=== PATIENT | female | born 1930 | race Caucasian/White ===

== ENCOUNTER 2016-06-13 10:14 | Inpatient (IN) | payer OTHER ==
[~2016-06-13] VITALS: Ht 165.1 cm; Wt 62.8 kg
[~2016-06-13 10:14] MED LIST: ALDACTONE25 MG PO; AMLODIPINE BESYL5 MG PO; ASPIRIN ADULT L81 MG PO; CEPHALEXIN500 MG PO; COREG25 MG PO; COUMADIN5 MG PO; DIGOXIN0.125 MG PO; EFFER-K20 MEQ PO; FLONASE AL50 MCG/ACT; FOLIC ACID1 MG PO; HYDROXYCHLOROQ200 MG PO; IPRATROPIUM BR0.02 %; IRON325 MG PO; LASIX40 MG PO; LISINOPRIL5 MG PO; MAG-OXIDE400 MG PO; METHOTREXATE2.5 MG PO; OXAYDO5 MG PO; PLAQUENIL200 M1 PO; POTASSIUM CHLO10 ME2 PO; PRILOSEC20 MG PO; TYLENOL325 MG PO; ZOCOR10 MG PO
--- NOTE | 2016-06-13 11:30 | DIAGNOSTIC IMAGING REPORT ---
PROCEDURE: CT HEAD WITHOUT CONTRAST INDICATION: TRAUMA/INJURY TECHNIQUE: Axial CT images were acquired through the head. Coronal and sagittal reformations were created. COMPARISON: Head CT dated 05/04/2013 FINDINGS: Right occipital craniotomy with underlying right cerebellar encephalomalacia (2.5 x 4.0 cm). Left frontoparietal scalp edema/hematoma but no underlying fracture or intracranial hemorrhage. Moderate cortical atrophy. Right ventricular system is unremarkable. Mild white matter chronic ischemic changes. No acute CVA, mass or midline shift. Calcification of the vertebral and carotid arteries. The mastoids and visualized sinuses are clear IMPRESSION: 1. Left frontal scalp edema/hematoma but no skull fracture or intracranial hemorrhage 2. Moderate cortical atrophy with mild white matter chronic ischemic changes 3. Right occipital craniotomy and underlying encephalomalacia Findings discussed with Dr. Cheng at 11:27 a.m., [place] standard time All CT scans at this facility use dose modulation, iterative reconstruction, and/or weight-based dosing when appropriate to reduce radiation dose to as low as reasonably achievable.
--- NOTE | 2016-06-13 11:33 | DIAGNOSTIC IMAGING REPORT ---
PROCEDURE: CT CERVICAL SPINE W/O CONTRAST INDICATION: TRAUMA/INJURY TECHNIQUE: Noncontrast axial images with sagittal and coronal reformations. COMPARISON: None. FINDINGS: There is spondylosis from C3-C7 with osteophytic ridges and foraminal impingement bilaterally. No evidence of an acute process or fracture. Alignment is normal. IMPRESSION: 1. Negative CT cervical spine. No evidence of an acute process or fracture. Spondylosis C3-C7
--- NOTE | 2016-06-13 11:36 | DIAGNOSTIC IMAGING REPORT ---
PROCEDURE: XR CHEST 1 VIEW INDICATION: SYNCOPE TECHNIQUE: Portable AP view 11:13 a.m. COMPARISON: Chest 09/23/2015 FINDINGS: Cardiomegaly and pulmonary edema. Mediastinum and thorax are normal. IMPRESSION: 1. Congestive heart failure 2. Results were called to Skylar at 11:35 a.m.
--- NOTE | 2016-06-13 14:07 | ED NURSING NOTES ---
Clinical Report - Nurses [facility] [address] [place] [address] 06/13/2016 10:14 [id number] Triage time 10:18 Jun 13 2016. Acuity: LEVEL 3. Chief Complaint: ALTERED MENTAL STATUS and (GLF). SEPSIS SCREEN: Sepsis Screen. Infection suspected/documented. Acute mental status change and glucose greater than 120 (with no history of diabetes). Physician notified. ALYSSA COMA SCORE: Alyssa Coma Scale: 9- eyes open to voice (3); best verbal response- incoherent speech (2); best motor response- withdrawal (4). --10:33 Amy Martin R.N. 10:20 06/13/16. BP: 177/79. HR: 81. RR: 18. O2 saturation: 94%. Temp: 97.1 F. --10:33 Amy Martin R.N. Weight: 77.1 kg estimated. Height/Length: 67 inches Estimated. BMI: 26.6. --10:32 Amy Martin R.N. Medications Ipratropium [place] Inhalation 2 unit doses, 4x a day as needed. --10:21 Amy Martin R.N. Ferrous Sulfate Oral (Tablet 325 (65 Fe) mg) 1 tablet, 2x a day. --10:22 Amy Martin R.N. Allergies No Known Drug Allergy. --10:22 Amy Martin R.N. History Arrived by EMS. PAST MEDICAL HX: Unknown. Immunizations: status is unknown. FALL RISK ASSESSMENT: Fall risk assessment completed. Risk factors identified include patient age greater than 65 years and history of fall. Fall interventions initiated. Patient placed on stretcher. Side rails up x2. Brakes on Bed in low position. Call light in reach of patient. NUTRITIONAL RISK ASSESSMENT: The nutritional assessment was deferred. FUNCTIONAL ASSESSMENT: Functional assessment performed: independent with the activities of daily living. LEARNING NEEDS ASSESSMENT: The learning needs assessment was deferred. SKIN INTEGRITY ASSESSMENT: Skin integrity risk assessment completed. No skin integrity risk identified. --10:33 Amy Martin R.N. PROBLEMS: Hypothyroidism. Abnormal Test. Anemia. GI Bleeding. Pedal Edema. Atrial Fibrillation. Hip Fracture. Congestive Heart Failure. Dyspnea. Fall. Contusion. Tetanus Status. Hypertension. Arthritis. --10:23 Amy Martin R.N. ADDITIONAL SURGERIES: Back Surgery. Knee Surgery. --10:23 Amy Martin R.N. Interventions ID band on patient. To room. --10:33 Amy Martin R.N. PHYSICAL ASSESSMENT To room via stretcher. GENERAL / NEURO / PSYCH: The patient is disoriented to place, time and situation. Patient's speech is incoherent. RESPIRATORY: Respirations not labored. CVS: Capillary refill is greater than 2 seconds. GI / : Abdomen soft. SKIN: Skin is warm and dry. --10:20 Amy Martin R.N. NURSING PROGRESS NOTES auto polisher, pulse oximeter and NIBP monitor placed on patient; staff research scientist- Lead II; monitor alarms on. Patient gowned. Head of bed elevated. Patient identifiers checked. Call light placed in reach. Side rails up x 2. Bed placed in lowest position. Brakes of bed on. --10:34 Amy Martin R.N. 5 fr in/out catheterization. Reason for indwelling catheter: patient's decreased level of consciousness. During procedure hand hygiene observed and sterile equipment and aseptic technique used. Return of yellow-colored clear urine. She tolerated procedure well. --10:35 Amy Martin R.N. Patient ID band checked for patient name and birthdate: patient confirmed. Blood samples drawn from the left antecubital space IV site with syringe by nurse ; labeled in presence of the patient and sent to lab: gerard gudino. Initial blood discarded. Line flushed with 10 mL normal saline post blood draw. --10:47 Amy Martin R.N. Patient ID band checked for patient name and birthdate. Blood samples drawn from the left hand with Vacutainer 21g by nurse ; labeled in presence of the patient and sent to lab: blue and singh top. --11:03 Amy Martin R.N. EKG time: (1100). EKG was ordered, performed by a tech and shown to the ED physician. --11:04 Amy Martin R.N. Patient transported to radiology by stretcher with tech. (1100). --11:04 Amy Martin R.N. 10:55. ( Pt transported to [facility] and back by [employer].). --11:11 Lesley Linares ( RT at bedside for ABG Blood draw). --11:11 Lesley Linares 10:30 06/13/2016 Site #1 started via IV in the left antecubital space with an 20g angiocath (IV initiated by jan CRISTINA). --11:40 Joellen Gibson R.N. 11:40 06/13/2016 Started bag #1 1000 mL IV Fluids IV NS (Saline); at 999 mL/hr over 1 hour(s) via site #1 via IV pump. Allergies verified and confirmed 5 rights. IV patency established. IV site checked: no pain, redness, or swelling. IV flushed thoroughly pre- and post-medication administration. --11:40 Joellen Gibson R.N. 12:07 06/13/16. BP: 166/85. HR: 92. RR: 19. O2 saturation: 100% on nasal cannula at 2 liters/minute. --12:07 Amy Martin R.N. 13:06 06/13/16. BP: 164/74. HR: 92. RR: 20. O2 saturation: 99%. --13:07 Amy Martin R.N. 15:16 06/13/2016 Lasix IVP 60 mg given over 5 minute(s) via site #1. Confirmed 5 rights. IV patency established. IV site checked: no pain, redness, or swelling. IV flushed thoroughly pre- and post-medication administration. --15:31 Amy Martin R.N. 15:17 06/13/2016 Started 2 gm of Ceftriaxone IVPB in bag #1 50 mL; at 150 mg/hr over 20 minute(s) via site #1 --15:32 Amy Martin R.N. 14:50 06/13/16. BP: 162/81. HR: 111. RR: 19. O2 saturation: 97% on nasal cannula at 2 liters/minute. --15:33 Amy Martin R.N. GENERAL / NEURO / PSYCH: Decreased awareness opens eyes to voice; drowsy. Two patient identifiers checked. Call light placed in reach. Bed placed in lowest position. Brakes of bed on. --15:33 Amy Martin R.N. 15:45 06/13/2016 Aspirin PA Supp/(PA) 300 mg given. --15:45 Amy Martin R.N. 16:05 06/13/16. The patient is resting quietly. Overall patient status is the same- she states feels the same. RESPIRATORY: No respiratory distress. SKIN: Skin is warm and dry. --16:05 Seema Molina R.N. 16:05 06/13/16. BP: 159/74. HR: 100. RR: 21. O2 saturation: 96% on room air. Pain level now: cannot qualify. --16:05 Seema Molina R.N. Care transferred and report given (Danni HODGSON). --16:48 Amy Martin R.N. NIH STROKE SCALE: 14:52 06/13/16. Score 16. Level of Consciousness: drowsy (1). LOC Questions: neither (2). LOC Commands: neither (2). Best gaze: normal (0). Motor arm: no drift left arm (0) and no effort against gravity right arm (3). Motor leg: no drift left leg (0) and no effort against gravity right leg (3). Aphasia: mute (3). Dysarthria: severe (2). Extinction and inattention: none (0). --14:56 Amy Martin R.N. DISPOSITION / DISCHARGE Departure time: 17:10 Jun 13 2016. Condition at departure: unchanged. Admitted to the Critical Care Unit. Transported via stretcher by [facility]. Report was given to a nurse via a phone call. Report included patient's care, treatment, medications, reviewed medication reconcilliation, and condition (including any recent changes or anticipated changes). All questions were answered. Care was transferred. Patient's personal items include, blalnket and gown; items were placed in belongings bag, given to the patient and transported with the patient. --17:16 Amy Martin R.N. Locked/Released at 06/17/2016 11:18 by Amy Martin R.N.
--- NOTE | 2016-06-13 14:07 | ED ORDER SUMMARY ---
..... Patient: SUNIL TRINH OrderSheet [facility] VisitID: [id number] [place] [address] 86y, F Registration Date/Time: 06/13/2016 ORDER SHEET Weight: 77.1 kg (estimated) Allergies: No Known Drug Allergy GENERAL ORDERS: Chest 1V Urgent (10:06/13/2016 Tatyana SAMPSON) (Ack 11:01 Jamshid) (11:16 Georgia R.N.) CT Head wo Cont Urgent (10:06/13/2016 Tatyana SAMPSON) (Ack 11:01 Jamshid) (11:17 Georgia R.N.) Solutions Consultant (Continuous) (:06/13/2016 Tatyana SAMPSON) (11:16 Georgia R.N.) CT Cervical Spine wo Cont Urgent (10:06/13/2016 Tatyana SAMPSON) (Ack 11:01 Jamshid) (11:17 Georgia R.N.) UA-Culture if indicated Urgent (10:06/13/2016 Tatyana SAMPSON) (Ack 11:01 Jamshid) (11:16 Georgia R.N.) Cardiac Panel Stat (:06/13/2016 Tatyana SAMPSON) (Ack 11:01 Jamshid) (11:40 KKnebel R.N.) BNP Urgent (10:06/13/2016 Tatyana SAMPSON) (Ack 11:01 Jamshid) (11:40 KKnebel R.N.) D-Dimer Urgent (10:06/13/2016 Tatyana SAMPSON) (Ack 11:01 Jamshid) (11:40 KKnebel R.N.) Lactate, Serum Urgent (:06/13/2016 Tatyana SAMPSON) (Ack 11:01 Jamshid) (11:40 KKnebel R.N.) Oxygen (2 L/min) (NC) (:06/13/2016 Tatyana SAMPSON) (11:41 KKnebel R.N.) Pulse oximeter (:06/13/2016 Tatyana SAMPSON) (11:16 Georgia R.N.) EKG - ER Stat (:06/13/2016 Tatyana SAMPSON) (11:02 Jamshid) ABG (G) Urgent (10:49 06/13/2016 Tatyana SAMPSON) (Ack 11:01 Jamshid) (11:42 Aleksander R.N.) Elizabeth Catheter (16:11 06/13/2016 Tatyana SAMPSON) (Ack 16:26 Maryann R.N.) (16:39 Aleksander R.N.) MEDICATION ORDERS: Aspirin GA 300 mg (NOW) (15:01 06/13/2016 Tatyana SAMPSON) (15:45 Aleksander R.N.) IV FLUIDS: IV NS : initial bolus 1000 mL (1000 mL/hr), then none - (NOW) (10:29 06/13/2016 Tatyana SAMPSON) (11:40 Jaycob R.N.) Lasix IV 60 mg (NOW) (14:02 06/13/2016 Tatyana SAMPSON) (15:31 Aleksander R.N.) Ceftriaxone IV 2 gm/50mL (NOW) (14:31 06/13/2016 Tatyana SAMPSON) (15:32 Aleksander R.N.) ORDER SHEET NOTES: [Electronically signed by Marisela Cheng MD (07:21 06/17/2016)] [Electronically signed by Amy Martin R.N. (11:18 06/17/2016)] [Electronically locked/signed by Amy Martin R.N. (11:18 06/17/2016)]
--- NOTE | 2016-06-13 14:07 | ED CLINICAL REPORT ---
Clinical Report - Physicians/Mid Levels [facility] [address] [place] [address] 06/13/2016 10:14 Patient: SUNLI TRINH Time Seen: 10:25. Arrived- By ambulance. Historian- EMS personnel. Unobtainable due to patient's altered mental status. HISTORY OF PRESENT ILLNESS Chief Complaint: DECREASED MENTAL STATUS. Pt also fell. The patient is described as having decreased responsiveness. This started today, is still present and patient was last known well (Staff at [facility] states that pt was her normal self yesterday evening. They heard a "thump" in her room this morning, and when they checked on her 30 min later, she was unresponsive on the floor. Pt has remained unresponsive for the medics, though she has been making occasional vocalizations and moving x 4 extremities.). The patient was found unresponsive. [facility] resident; (assisted living, has her own apartment). History of chronic dementia. No alcohol recently or recent drug use. Dextro stick was not low prior to arrival. The patient has had a recent fall. Usually has normal mobility. She is usually alert, but disoriented to time. Similar symptoms previously: None. Recent medical care: Not recently seen/assessed. REVIEW OF SYSTEMS Unobtainable. PAST HISTORY ( POLST form with DNR has accompanied pt.). Problems: Hypothyroidism. Anemia. GI Bleeding. Pedal Edema. Atrial Fibrillation. Hip Fracture. Congestive Heart Failure. Dyspnea. Tetanus Status. Hypertension. Arthritis. Additional Surgeries: Back Surgery. Knee Surgery. Medications: Ferrous Sulfate Oral (Tablet 325 (65 Fe) mg) 1 tablet, 2x a day. Ipratropium [place] Inhalation 2 unit doses, 4x a day as needed. Allergies: No Known Drug Allergy. SOCIAL HISTORY Never smoker. No alcohol use or drug use. ADDITIONAL NOTES The nursing notes have been reviewed. PHYSICAL EXAM Vital Signs: 06/13/2016 10:20 BP: 177/79. HR: 81. RR: 18. O2 saturation: 94%. Temp: 97.1 F. Have been reviewed. Appearance: No acute distress. She is obtunded. (PT groans in response to voice, and vaguely pulls at her eyes when addressed.). Head: Head atraumatic. Eyes: Pupils equal, round and reactive to light. ENT: Normal ENT inspection. Airway intact. Moist mucous membranes. Neck: Normal inspection. Neck supple. CVS: Normal heart rate and rhythm. Heart sounds normal. Pulses normal. Respiratory: No respiratory distress. Breath sounds normal. Abdomen: Soft and nontender. Back: Normal inspection. Skin: Skin warm and dry. Normal skin color. No rash. Normal skin turgor. Extremities: Extremities exhibit normal ROM. No lower extremity edema. Neuro: Alertness is decreased(does not open eyes to pain and stuporous). (Pt is moving all 4 extremities.). LABS, X-RAYS, AND EKG EKG: EKG time: (1058). No acute ischemia. Rate: 77. Atrial fibrillation. Abnormal P waves. Normal QRS complex. Normal axis. Normal ST and T waves, QT and QTc. Prior EKG unavailable. The study has been interpreted contemporaneously by me. The study has been independently viewed by me. The EKG appears to be a good tracing. I agree with and confirm the computer reading of the EKG. Rhythm Strip #1: Time: (1016). Rate= 94. Atrial fibrillation. Narrow QRS complexes. Irregularly irregular rhythm. No ectopy. Conduction normal. Normal ST segments and T waves. The study was interpreted by me. Chest X-ray: Normal heart size. Mediastinum normal. Great vessels normal. Soft tissues normal. No infiltrate. No fracture. No bony lesion present. Views: AP (portable). Technique: good. The X-rays were independently viewed by me, interpreted by the radiologist and contemporaneously by me and discussed with the radiologist. Prior films were not available for comparison. CT C-Spine: No acute findings. Degenerative joint disease. Soft tissue normal. No fracture or subluxation. C-Spine CT performed without contrast. The study was independently viewed by me, interpreted by the radiologist and contemporaneously by me and discussed with the radiologist. Prior studies were not available for comparison. CT Head: No acute changes. No bony abnormalities, no hemorrhage, no intracranial mass, no midline shift and no hydrocephalus. There is moderate atrophy is present. Head CT performed without contrast. The study was independently viewed by me, interpreted contemporaneously by me and discussed with the radiologist. Prior studies were not available for comparison. Laboratory Tests: UA-Culture if indicated: (JOSH: 06/13/2016 10:35) ( MsgRcvd 06/13/2016 11:42) Final results Test Result Flag Units (Reference) URINE COLOR YELLOW URINE APPEARANCE CLEAR URINE GLUCOSE NEGATIVE (NEGATIVE) URINE BILIRUBIN NEGATIVE (NEGATIVE) URINE KETONE NEGATIVE (NEGATIVE) URINE SPECIFIC GRAVITY 1.010 (1.010-1.030) URINE PH 5.5 (5.0-8.0) URINE PROTEIN NEGATIVE (NEGATIVE) URINE UROBILINOGEN 0.2 EU/dL (0.2-1.0) URINE NITRITE NEGATIVE (NEGATIVE) URINE BLOOD NEGATIVE (NEGATIVE) URINE LEUK ESTERASE POSITIVE (NEGATIVE) URINE RBC NONE SEEN rbc/hpf (0-1) URINE WBC 1-3 wbc/hpf (0-1) URINE EPITHELIAL CELLS 0-1 EPI/hpf (0-5) URINE BACTERIA TRACE (<1+) (NONE SEEN) URINE COMMENT CULTURE INDICATED URINE CULTURES ARE SET-UP BASED ON THE FOLLOWING CRITERIA:POSITIVE NITRITEPOSITIVE LEUKOCYTE ESTERASEGREATER THAN 10 WHITE BLOOD CELLSMODERATE (2+) OR GREATER BACTERIA CBC w Diff: (JOSH: 06/13/2016 10:40) ( MsgRcvd 06/13/2016 10:53) Final results Test Result Flag Units (Reference) WHITE BLOOD COUNT 3.9 L K/uL (4.5-11.5) RED BLOOD COUNT 2.12 L M/uL (4.00-5.20) HEMOGLOBIN 7.5 L gm/dL (12.0-16.0) HEMATOCRIT 23.2 L % (36.0-46.0) MEAN CELL VOLUME 110 H fL (80-100) MEAN CORPUSCULAR HGB 36 H pg (26-34) MEAN CORPUSCULAR HGB CONC 32 g/dL (31-37) RED CELL DISTRIBUTION WIDTH 15.9 H % (11.6-14.8) PLATELET COUNT 150 K/uL (150-400) NEUTROPHIL % 62.7 % (50-75) LYMPH % 16.9 L % (25-40) MONO % 13.8 % (3-14) EOSINOPHIL % 6.1 H % (0-4) BASOPHIL % 0.5 % (0-2) [id number]: (JOSH: 06/13/2016 11:00) ( [facility] 06/13/2016 11:37) Final results Test Result Flag Units (Reference) D-DIMER QUANTITATIVE 1.33 H ug/mLFEU (0.27-0.52) The primary value of this quantitative assay relates toits negative predictive value (i.e. exclusion) of pulmonaryembolism/deep vein thrombosis/DIC.Elevated levels of d-dimer may also occur with:, age, cancer, inflammation, liver disease,post-op, infection, hematoma, coronary disease, peripheralarteriopathy, bleeding disorders and thrombolytic treatment.Results should be correlated with other clinical andradiological data.Testing Methodology: Latex Immunoassay BNP: (JOSH: 06/13/2016 10:40) ( [facility] 06/13/2016 11:20) Final results Test Result Flag Units (Reference) B-TYPE NATRIURETIC PEPTIDE 193 H pg/ml (5-100) Lactate, Serum: (JOSH: 06/13/2016 11:00) ( [facility] 06/13/2016 11:29) Final results Test Result Flag Units (Reference) LACTIC ACID 1.3 mmol/L (0.4-2.0) CHEM 13 PANEL: (JOSH: 06/13/2016 10:40) ( [facility] 06/13/2016 11:10) Final results Test Result Flag Units (Reference) GLUCOSE 99 mg/dL (70-110) BUN 45 H mg/dL (7-18) CREATININE 1.5 H mg/dL (0.6-1.3) Estimated GFR 34.83 mL/min Estimated GFR- 42.22 mL/min Note: Persistent reduction over 3 months in eGFR<60 mL/min/1.73 m2 defines CKD. Patients with eGFR values>=60 mL/min/1.73 m2 may also have CKD if evidence ofpersistent proteinuria. Additional information may be foundat www.kidney.org. SODIUM 141 mmol/L (136-145) POTASSIUM 3.9 mmol/L (3.5-5.1) CHLORIDE 107 mmol/L (98-107) CARBON DIOXIDE 29 mmol/L (21-32) CALCIUM 8.4 L mg/dL (8.5-10.1) TOTAL PROTEIN 6.4 g/dL (6.4-8.2) ALBUMIN 2.6 L g/dL (3.3-5.0) BILIRUBIN, TOTAL 0.2 mg/dL (0.0-1.0) ALKALINE PHOSPHATASE 72 U/L (46-116) AST (SGOT) 17 U/L (15-37) ALT (SGPT) 18 U/L (12-78) CPK 54 U/L (24-260) MAGNESIUM 1.9 mg/dL (1.8-2.4) TROPONIN I <0.05 ng/mL (0.00-1.5) TROPONIN REFERENCE RANGE:<0.1 NEGATIVE0.1-1.5 INDETERMINANT>1.5 POSITIVE ABG: (JOSH: 06/13/2016 10:49) ( MsgRcvd 06/13/2016 11:23) Final results Test Result Flag Units (Reference) FIO2 0.21 L % (20-101) ABG MODE OF DELIVERY RA MODIFIED GEOVANY TEST POSITIVE? YES ABG PATIENT RESP RATE 16 /MIN ARTERIAL BLOOD GAS SITE RR ARTERIAL BLOOD GAS pH 7.44 (7.35-7.45) ABG PCO2 38.8 mmHg (35-45) ABG PO2 65.9 mmHg (60.0-80.0) ABG BASE EXCESS 1.8 H mmol/L (-6.0--6.0) ABG HCO3 26.2 H mmol/L (20.0-26.0) ABG TCO2 27.4 mmol/L (24.0-30.0) ABG QrMxW1w 40.5 H mmHg (7.0-14.0) *NOTE: Normal rangeis based on aFIO2 of 21% ABG SAT O2 94.2 L % (95.1-100.0) ABG TOTAL HEMOGLOBIN 7.7 L g/dL (12.0-16.0) ABG O2 HEMOGLOBIN 91.8 L % (95.0-100.0) ABG CARBOXYHEMOGLOBIN 2.3 H % (0.5-1.5) ABG METHEMOGLOBIN 0.3 L % (0.4-1.5) ABG RHEMOGLOBIN 5.6 % . Pulse Oximetry: 06/13/2016 10:20 O2 saturation: 94%. (FIO2 - room air). Interpretation: normal. PROGRESS AND PROCEDURES Course of Care: Pt was worked up for her altered mental status, and work-up was unremarkable. I did speak with Dr. Hdz who thought perhaps pt's gabapentin was the culprit. Discussed case with health care provider (Andreina/PCP). Reviewed test results and need for additional work-up. Agreed upon treatment plan and decision to admit. Health care provider will see patient in hospital. Caregiver counseled regarding the patient's serious condition, test results, diagnosis and need for admission. Old medical records reviewed. Disposition: Admitted to the Critical Care Unit. Condition: serious. CLINICAL IMPRESSION Acute mental status change with stupor. Fall. (Electronically signed by Marisela Cheng MD 06/17/2016 7:21)
--- NOTE | 2016-06-13 14:07 | ED NURSING NOTES ---
Clinical Report - Nurses [facility] [address] [place] [address] 06/13/2016 10:14 [id number] Triage time 10:18 Jun 13 2016. Acuity: LEVEL 3. Chief Complaint: ALTERED MENTAL STATUS and (GLF). SEPSIS SCREEN: Sepsis Screen. Infection suspected/documented. Acute mental status change and glucose greater than 120 (with no history of diabetes). Physician notified. ALYSSA COMA SCORE: Alyssa Coma Scale: 9- eyes open to voice (3); best verbal response- incoherent speech (2); best motor response- withdrawal (4). --10:33 Amy Martin R.N. 10:20 06/13/16. BP: 177/79. HR: 81. RR: 18. O2 saturation: 94%. Temp: 97.1 F. --10:33 Amy Martin R.N. Weight: 77.1 kg estimated. Height/Length: 67 inches Estimated. BMI: 26.6. --10:32 Amy Martin R.N. Medications Ipratropium Warren Inhalation 2 unit doses, 4x a day as needed. --10:21 Amy Martin R.N. Ferrous Sulfate Oral (Tablet 325 (65 Fe) mg) 1 tablet, 2x a day. --10:22 Amy Martin R.N. Allergies No Known Drug Allergy. --10:22 Amy Martin R.N. History Arrived by EMS. PAST MEDICAL HX: Unknown. Immunizations: status is unknown. FALL RISK ASSESSMENT: Fall risk assessment completed. Risk factors identified include patient age greater than 65 years and history of fall. Fall interventions initiated. Patient placed on stretcher. Side rails up x2. Brakes on Bed in low position. Call light in reach of patient. NUTRITIONAL RISK ASSESSMENT: The nutritional assessment was deferred. FUNCTIONAL ASSESSMENT: Functional assessment performed: independent with the activities of daily living. LEARNING NEEDS ASSESSMENT: The learning needs assessment was deferred. SKIN INTEGRITY ASSESSMENT: Skin integrity risk assessment completed. No skin integrity risk identified. --10:33 Amy Martin R.N. PROBLEMS: Hypothyroidism. Abnormal Test. Anemia. GI Bleeding. Pedal Edema. Atrial Fibrillation. Hip Fracture. Congestive Heart Failure. Dyspnea. Fall. Contusion. Tetanus Status. Hypertension. Arthritis. --10:23 Amy Martin R.N. ADDITIONAL SURGERIES: Back Surgery. Knee Surgery. --10:23 Amy Martin R.N. Interventions ID band on patient. To room. --10:33 Amy Martin R.N. PHYSICAL ASSESSMENT To room via stretcher. GENERAL / NEURO / PSYCH: The patient is disoriented to place, time and situation. Patient's speech is incoherent. RESPIRATORY: Respirations not labored. CVS: Capillary refill is greater than 2 seconds. GI / : Abdomen soft. SKIN: Skin is warm and dry. --10:20 Amy Martin R.N. NURSING PROGRESS NOTES supervisor coil winding, pulse oximeter and NIBP monitor placed on patient; final touch up painter- Lead II; monitor alarms on. Patient gowned. Head of bed elevated. Patient identifiers checked. Call light placed in reach. Side rails up x 2. Bed placed in lowest position. Brakes of bed on. --10:34 Amy Martin R.N. 5 fr in/out catheterization. Reason for indwelling catheter: patient's decreased level of consciousness. During procedure hand hygiene observed and sterile equipment and aseptic technique used. Return of yellow-colored clear urine. She tolerated procedure well. --10:35 Amy Martin R.N. Patient ID band checked for patient name and birthdate: patient confirmed. Blood samples drawn from the left antecubital space IV site with syringe by nurse ; labeled in presence of the patient and sent to lab: gerard gudino. Initial blood discarded. Line flushed with 10 mL normal saline post blood draw. --10:47 Amy Martni R.N. Patient ID band checked for patient name and birthdate. Blood samples drawn from the left hand with Vacutainer 21g by nurse ; labeled in presence of the patient and sent to lab: blue and snigh top. --11:03 Amy Martin R.N. EKG time: (1100). EKG was ordered, performed by a tech and shown to the ED physician. --11:04 Amy Martin R.N. Patient transported to radiology by stretcher with tech. (1100). --11:04 Amy Martin R.N. 10:55. ( Pt transported to [facility] and back by Repairer Cylinder Heads.). --11:11 Lesley Linares ( RT at bedside for ABG Blood draw). --11:11 Lesley Linares 10:30 06/13/2016 Site #1 started via IV in the left antecubital space with an 20g angiocath (IV initiated by jan CRISTINA). --11:40 Joellen Gibson R.N. 11:40 06/13/2016 Started bag #1 1000 mL IV Fluids IV NS (Saline); at 999 mL/hr over 1 hour(s) via site #1 via IV pump. Allergies verified and confirmed 5 rights. IV patency established. IV site checked: no pain, redness, or swelling. IV flushed thoroughly pre- and post-medication administration. --11:40 Joellen Gibson R.N. 12:07 06/13/16. BP: 166/85. HR: 92. RR: 19. O2 saturation: 100% on nasal cannula at 2 liters/minute. --12:07 Amy Martin R.N. 13:06 06/13/16. BP: 164/74. HR: 92. RR: 20. O2 saturation: 99%. --13:07 Amy Martin R.N. 15:16 06/13/2016 Lasix IVP 60 mg given over 5 minute(s) via site #1. Confirmed 5 rights. IV patency established. IV site checked: no pain, redness, or swelling. IV flushed thoroughly pre- and post-medication administration. --15:31 Amy Martin R.N. 15:17 06/13/2016 Started 2 gm of Ceftriaxone IVPB in bag #1 50 mL; at 150 mg/hr over 20 minute(s) via site #1 --15:32 Amy Martin R.N. 14:50 06/13/16. BP: 162/81. HR: 111. RR: 19. O2 saturation: 97% on nasal cannula at 2 liters/minute. --15:33 Amy Martin R.N. GENERAL / NEURO / PSYCH: Decreased awareness opens eyes to voice; drowsy. Two patient identifiers checked. Call light placed in reach. Bed placed in lowest position. Brakes of bed on. --15:33 Amy Martin R.N. 15:45 06/13/2016 Aspirin NE Supp/(NE) 300 mg given. --15:45 Amy Martin R.N. 16:05 06/13/16. The patient is resting quietly. Overall patient status is the same- she states feels the same. RESPIRATORY: No respiratory distress. SKIN: Skin is warm and dry. --16:05 Seema Molina R.N. 16:05 06/13/16. BP: 159/74. HR: 100. RR: 21. O2 saturation: 96% on room air. Pain level now: cannot qualify. --16:05 Seema Molina R.N. Care transferred and report given (Danni HODGSON). --16:48 Amy Martin R.N. NIH STROKE SCALE: 14:52 06/13/16. Score 16. Level of Consciousness: drowsy (1). LOC Questions: neither (2). LOC Commands: neither (2). Best gaze: normal (0). Motor arm: no drift left arm (0) and no effort against gravity right arm (3). Motor leg: no drift left leg (0) and no effort against gravity right leg (3). Aphasia: mute (3). Dysarthria: severe (2). Extinction and inattention: none (0). --14:56 Amy Martin R.N. DISPOSITION / DISCHARGE Departure time: 17:10 Jun 13 2016. Condition at departure: unchanged. Admitted to the Critical Care Unit. Transported via stretcher by [employer]. Report was given to a nurse via a phone call. Report included patient's care, treatment, medications, reviewed medication reconcilliation, and condition (including any recent changes or anticipated changes). All questions were answered. Care was transferred. Patient's personal items include, blalnket and gown; items were placed in belongings bag, given to the patient and transported with the patient. --17:16 Amy Martin R.N. Locked/Released at 06/17/2016 11:18 by Amy Martin R.N.
--- NOTE | 2016-06-13 14:07 | ED ORDER SUMMARY ---
..... Patient: SUNIL TRINH OrderSheet [facility] VisitID: [id number] [place] [address] 86y, F Registration Date/Time: 06/13/2016 ORDER SHEET Weight: 77.1 kg (estimated) Allergies: No Known Drug Allergy GENERAL ORDERS: Chest 1V Urgent (10:06/13/2016 Tatyana SAMPSON) (Ack 11:01 Jamshid) (11:16 Georgia R.N.) CT Head wo Cont Urgent (10:06/13/2016 Tatyana SAMPSON) (Ack 11:01 Jamshid) (11:17 Georgia R.N.) Legal Administrative Assistant (Continuous) (:06/13/2016 Tatyana SAMPSON) (11:16 Georgia R.N.) CT Cervical Spine wo Cont Urgent (10:06/13/2016 Tatyana SAMPSON) (Ack 11:01 Jamshid) (11:17 Georgia R.N.) UA-Culture if indicated Urgent (10:06/13/2016 Tatyana SAMPSON) (Ack 11:01 Jamshid) (11:16 Georgia R.N.) Cardiac Panel Stat (:06/13/2016 Tatyana SAMPSON) (Ack 11:01 Jamshid) (11:40 KKnebel R.N.) BNP Urgent (10:06/13/2016 Tatyana SAMPSON) (Ack 11:01 Jamshid) (11:40 KKnebel R.N.) D-Dimer Urgent (10:06/13/2016 Tatyana SAMPSON) (Ack 11:01 Jamshid) (11:40 KKnebel R.N.) Lactate, Serum Urgent (:06/13/2016 Tatyana SAMPSON) (Ack 11:01 Jamshid) (11:40 KKnebel R.N.) Oxygen (2 L/min) (NC) (:06/13/2016 Tatyana SAMPSON) (11:41 KKnebel R.N.) Pulse oximeter (:06/13/2016 Tatyana SAMPSON) (11:16 Georgia R.N.) EKG - ER Stat (:06/13/2016 Tatyana SAMPSON) (11:02 Jamshid) ABG (G) Urgent (10:49 06/13/2016 Tatyana SAMPSON) (Ack 11:01 Jamshid) (11:42 Aleksander R.N.) Elizabeth Catheter (16:11 06/13/2016 Tatyana SAMPSON) (Ack 16:26 Maryann R.N.) (16:39 Aleksander R.N.) MEDICATION ORDERS: Aspirin WI 300 mg (NOW) (15:01 06/13/2016 Tatyana SAMPSON) (15:45 Aleksander R.N.) IV FLUIDS: IV NS : initial bolus 1000 mL (1000 mL/hr), then none - (NOW) (10:29 06/13/2016 Tatyana SAMPSON) (11:40 Jaycob R.N.) Lasix IV 60 mg (NOW) (14:02 06/13/2016 Tatyana SAMPSON) (15:31 Aleksander R.N.) Ceftriaxone IV 2 gm/50mL (NOW) (14:31 06/13/2016 Tatyana SAMPSON) (15:32 Aleksander R.N.) ORDER SHEET NOTES: [Electronically signed by Marisela Cheng MD (07:21 06/17/2016)] [Electronically signed by Amy Martin R.N. (11:18 06/17/2016)] [Electronically locked/signed by Amy Martin R.N. (11:18 06/17/2016)]
--- NOTE | 2016-06-13 16:36 | Progress Note ---
Subjective General 86 y.o female who presents to the ER with decrease in LOC. Hx of fall. Fairly recent start on gabapentin. Right sided neglect and paralysis noted. A: CVA right paralysis no gag Plan: obs for improvement in stroke symptoms Avoid oral meds. MRI brain.
[2016-06-13 17:18] VITALS: BP 158/76
--- NOTE | 2016-06-13 17:54 | NUR ---
ARRIVED TO THE ROOM ABOUT 30 MINUTES AGO. PT HAS EYES CLOSED, WHEN ASKED TO OPEN HER EYES HER BROW LIFT, BUT HER EYE DO NOT OPEN. SHE HAS USED HER LEFT HAND TO LIFT HER LIDS UP MORE THAN ONCE. RIGHT SIDE IS FLACCID AND SHE IS UNABLE TO KEEP RIGHT ARM OR LEG OFF OF THE BED WHEN LIFTED AND RELEASED. SHE IS ALTHOUGH ABLE TO KEEP BOTH HER LEFT ARM AND LEG ELEVATED OFF OF BED WHEN LIFTED AND RELEASED. PT SQUEEZED WITH LEFT HAND WHEN ASKED TO DO SO. PT'S MOUTH IS OPENED AND HER TONGUE DEVIATES TOWARD THE LEFT. PIL IN LAC. BARDALES CATH WITH CLEAR YELLOW URINE. PT'S COCCYX IS REDDENED AND SLIGHTLY BLANCHABLE, MEPILEX APPLIED TO COCCYX. DAUGHTER ROLAND HAS ARRIVED AND HAS BEEN UPDATED ON PT'S CONDITION.
--- NOTE | 2016-06-13 20:28 | HISTORY AND PHYSICAL ---
ADMITTED: 06/13/2016 CHIEF COMPLAINT: 1. Decreased mental status changes, fall, stroke HISTORY OF PRESENT ILLNESS: The patient is an 86-year-old female who presented to the emergency department after having a fall at home. She was upstairs, there was a bump heard, but nobody saw her then for about half hour. Supposedly, she was found down after about a half hour of on the ground and was brought to the emergency department for further evaluation. In the emergency department, they had mental status changes and an abrasion on her head and maybe some gaze deficit and that she had labs and urine workup, as well that shows possible urinary tract infection. Since she has been up on the floor it has been noted that she has had a worsening right-sided deficit and now has a pretty marked paralysis of her right upper and lower extremity, as well as a flaccid right side of her face consistent with a stroke, in spite of the negative CT done in the emergency department. She is now being admitted for stroke, fall, decreased level of consciousness and chronic medical problems including atrial fibrillation, congestive heart failure, rheumatoid arthritis, high blood pressure, etc. MEDICAL/SURGICAL HISTORY: Past medical history: She has had high blood pressure, rheumatoid arthritis, congestive heart failure, atrial fibrillation, GI bleed, anemia, bilateral leg pain, and bowel problems. Past surgical history: She has had a right ear nerve surgery in 1977, back surgery in 1992, total knee arthroplasty, left, in 2002, and a tonsillectomy, distant. MEDICATIONS: 1. Vitamin C 250 mg t.i.d. 2. Gabapentin 100 mg p.o. 1-3 at bedtime p.r.n. for leg pain at night. 3. Nystop antifungal apply twice a day as needed for toe infection between the toes. 4. Carvedilol 6.25 mg p.o. b.i.d. for high blood pressure. 5. Aspirin 81 mg p.o. daily. 6. Acetaminophen 1 tablet of 325 mg every 4 hours as needed for pain. 7. Omeprazole 20 mg p.o. b.i.d. 8. Lisinopril 5 mg p.o. daily. 9. Zocor 20 mg p.o. at bedtime. 10. Lasix 40 mg p.o. daily. ALLERGIES: 1. PENICILLIN. CODE STATUS: DO NOT RESUSCITATE/DO NOT INTUBATE AND NO ARTIFICIAL NUTRITION BY TUBE. SOCIAL HISTORY: She is . She wears glasses. She occasionally drinks a drink and she quit smoking a number of months ago, used to smoke about a cigarette per day. FAMILY HISTORY: Father had heart disease and he had this before age 55. Mother had a stroke and hypertension. REVIEW OF SYSTEMS: Unable to obtain at this point due to the stroke, but she is unable to use her right side of her body. She has a negative gag and she was up using a walker and went out to [facility] within the last couple of weeks, doing remarkably better than she is right now. PHYSICAL EXAMINATION: GENERAL: The patient is a sleepy-appearing female who does respond to questions , unable to vocalize at this point. She is able to follow some directions as far as wiggling her fingers and her toes on her left side, unable to move the right side of her body. VITAL SIGNS: Blood pressure of 177/79, heart rate of 81, respirations 18, saturating 94% on room air, temperature is 97.1. HEENT: She has got a large abrasion, superficial, on top of her head. She is unable to open her eyelids well bilaterally. Her oropharynx is with the tacky mucous membranes. She is able to extend her tongue midline. Her face, right side has droopy face and no wrinkles compared to left. NECK: Supple. HEART: Irregularly irregular. LUNGS: With coarse breath sounds and some soft rhonchi. ABDOMEN: Soft, nontender, nondistended. EXTREMITIES: Right-sided paralysis bilaterally, not able to wiggle her fingers or toes on the right side. On the left she is able to, and sensation unable to truly obtain due to her inability to respond well to questioning. GENITOURINARY: Deferred. RECTAL: Deferred. BREASTS: Deferred. NEUROLOGIC: Her cranial nerves are limited. She does have extraocular movements that appear intact. She is able to stick out her tongue, but unable to assess other cranial nerves. Her left-sided upper extremity and leg appear to be working adequately, her right is flaccid. She does have negative gag reflex. LAB/IMAGING: Imaging: She had a CT of her head that showed a left frontal scalp edema, moderate cortical atrophy and right occipital craniotomy, underlying encephalomalacia. CT of the C-spine: Shows negative for fracture and spondylolisthesis of C3 through C7. Chest x-ray: Shows congestive heart failure, otherwise negative. Her urinalysis shows a positive leuk esterase, negative nitrite, and 1-3 white cells. CBC shows a white count 3.9, hematocrit 23.2, and platelets of 150,000. Comprehensive metabolic panel: Glucose 99, BUN of 45, creatinine 1.5, sodium 141 , potassium 3.9, chloride of 107, HCO3 29, magnesium 1.9, calcium 8.4, total protein 6.4. Albumin 2.6, total bili 0.2, alk phos 72, AST of 17, ALT of 18. CPK 54, troponin I less than 0.05. BNP of 193. ABG was 7.44, pCO2 38 and pO2 65.9. Lactic acid 1.3. D-dimer 1.33. EKG: Consistent with atrial fibrillation. IMPRESSION: 1. Right-sided paralysis, new, and no gag reflex, consistent with a new cerebrovascular accident with right-sided paralysis. 2. Atrial fibrillation, on aspirin for anticoagulation in a clinic due to gastrointestinal bleed and anemia history. 3. Anemia, chronic. 4. Low white count and platelets at 150,000, borderline low. Her BNP and chest x-ray have some mild congestive heart failure. Her D-dimer is elevated, though at this time it seems that her stroke is the greater process. 5. Code status: DO NOT RESUSCITATE/DO NOT INTUBATE and not wanting to have interventions such as tube feedings unless she were able to be awake enough to ask for this. PLAN: 1. I am going to order an MRI in the morning. 2. I will hold off on any oral medications, food or fluid until we were able to have evaluation by speech evaluation. 3. We will have patient monitored for improvement in stroke symptoms over the next couple days and anticipate that patient will either improve or decline. The family is aware that in this condition she would not want to remain with invasive measures or significant treatment of any condition that would keep her in this state as this was not her goal.
[2016-06-13 22:06] VITALS: BP 159/67
--- NOTE | 2016-06-13 22:08 | NUR ---
ON ASSESSMENT, PT EASILY ROUSED, BUT UNABLE TO OPEN EYES. USED LEFT HAND TO HOLD EYELID OPEN WHILE BEING SPOKEN TO. WHEN ASKED IF SHE IS PAINFUL, PT SHOOK HER HEAD AND MADE A NOISE THAT SOUNDED LIKE "NO". NOTED TO BE UNABLE TO MANAGE ORAL SECRETIONS; DROOLING. WILL GIVE FREQUENT ORAL CARE.
--- NOTE | 2016-06-14 01:00 | NUR ---
PT FREQUENTLY PUSHING AT HER EYELIDS TO HOLD OPEN. NOTED TO HAVE CAUSED TRAUMA TO THE RIGHT EYE FROM THIS ACTIVITY. USED PILLOWS TO POSITION ARMS IN SUCH A WAY TO PREVENT HER FROM CONTINUING TO POKE AT HER EYES. WILL MONITOR AND CONSIDER MITTS IF NECESSARY.
[2016-06-14 02:07] VITALS: BP 151/59
--- NOTE | 2016-06-14 05:26 | NUR ---
PT HAS BEEN SLEEPING THROUGH [facility] DURING THE NIGHT AND IS NOT CURRENTLY FOLLOWING COMMANDS. APPEARS COMFORTABLE. BARDALES DRAINING CLEAR YELLOW URINE. VSS. WCTM.
[2016-06-14 06:58] VITALS: BP 153/73
--- NOTE | 2016-06-14 07:53 | Progress Note ---
Subjective General 86 y.o female with afib,htn who presented to the ER with a fall and is now with right sided paralysis and not communicating. Physical Exam Vital Signs / I&Os Vital Signs Date Time Temp Pulse Resp B/P Pulse O2 O2 Flow FiO2 Ox Delivery Rate 06/14 0658 99.1 108 16 153/73 97 Nasal 2.0 Cannula 06/14 0641 2.0 06/14 0207 98.2 61 16 151/59 98 Nasal 2.0 Cannula 06/13 2206 97.9 96 20 159/67 100 Nasal 2.0 Cannula 06/13 203 Nasal 2.0 Cannula 06/13 1822 2 2.0 06/13 1718 97.9 85 22 158/76 98 Room Air I&O 06/14 0000 06/13 1600 06/13 0800 Intake Total Output Total 1550 Balance -1550 General Appearance sleepy nad HEENT bruising at forhead and L eye a little red and swollen Lungs Clear to auscultation, Normal air movement Cardiovascular slightly irregular but rate controlled Extremities right paralysis and L hand in mitten as was picking at L eye to hold open LAB Results Laboratory Tests 06/14 06/13 06/13 06/13 06/13 0528 1100 1049 1040 1040 Blood Gas Sample Site RR Total CO2 (24.0 - 30.0 mmol/L) 27.4 ABG pH (7.35 - 7.45) 7.44 ABG pCO2 at Pt Temp (35 - 45 mmHg) 38.8 ABG pO2 at Pt Temp (60.0 - 80.0 mmHg) 65.9 ABG HCO3 (20.0 - 26.0 mmol/L) 26.2 ABG O2 Sat Calc/Carmelita (95.1 - 100.0 %) 94.2 ABG Base Excess (-6.0 - -6.0 mmol/L) 1.8 ABG Reduced Hgb (%) 5.6 ABG Carboxyhemoglobin (0.5 - 1.5 %) 2.3 ABG Methemoglobin (0.4 - 1.5 %) 0.3 Jesse Test YES Other Total Hgb (12.0 - 16.0 g/dL) 7.7 A-a O2 Gradient (7.0 - 14.0 mmHg) 40.5 Hgb O2 Saturation (95.0 - 100.0 %) 91.8 Respiration Rate (/MIN) 16 Vent Mode RA FiO2 (20 - 101 %) 0.21 Chemistry Plasma Sodium (136 - 145 mmol/L) 144 141 Plasma Potassium (3.5 - 5.1 mmol/L) 3.8 3.9 Plasma Chloride (98 - 107 mmol/L) 108 107 CO2 (Enzymatic) (21 - 32 mmol/L) 27 29 BUN (7 - 18 mg/dL) 36 45 Creatinine (0.6 - 1.3 mg/dL) 1.3 1.5 Est GFR ( Amer) (mL/min) 49.80 42.22 Est GFR (Non-Af Amer) (mL/min) 41.09 34.83 Glucose (70 - 110 mg/dL) 92 99 Lactic Acid (0.4 - 2.0 mmol/L) 1.3 Plasma Calcium (8.5 - 10.1 mg/dL) 8.1 8.4 Plasma Magnesium (1.8 - 2.4 mg/dL) 1.7 1.9 Total Bilirubin (0.0 - 1.0 mg/dL) 0.3 0.2 AST (15 - 37 U/L) 20 17 ALT (12 - 78 U/L) 11 18 Alkaline Phosphatase (46 - 116 U/L) 64 72 Creatine Kinase (24 - 260 U/L) 54 Troponin (0.00 - 1.5 ng/mL) <0.05 B-Natriuretic Peptide (5 - 100 pg/ml) 193 Total Protein (6.4 - 8.2 g/dL) 6.2 6.4 Albumin (3.3 - 5.0 g/dL) 2.4 2.6 Coagulation D-Dimer, Quantitative (0.27 - 0.52 ug/mLFEU) 1.33 Hematology WBC (4.5 - 11.5 K/uL) 5.2 3.9 RBC (4.00 - 5.20 M/uL) 2.15 2.12 Hgb (12.0 - 16.0 gm/dL) 7.7 7.5 Hct (36.0 - 46.0 %) 23.6 23.2 MCV (80 - 100 fL) 110 110 MCH (26 - 34 pg) 36 36 RDW (11.6 - 14.8 %) 15.4 15.9 Neut % (Auto) (50 - 75 %) 77.8 62.7 Lymph % (Auto) (25 - 40 %) 11.1 16.9 [place] % (Auto) (3 - 14 %) 8.5 13.8 Eos % (Auto) (0 - 4 %) 1.9 6.1 Baso % (Auto) (0 - 2 %) 0.7 0.5 Plt Count, EDTA (150 - 400 K/uL) 147 150 PUBS MCHC (31 - 37 g/dL) 33 32 06/13 1035 Urines Urine Color YELLOW Urine Appearance CLEAR Urine pH (5.0 - 8.0) 5.5 Ur Specific Dustin (1.010 - 1.030) 1.010 Urine Protein (NEGATIVE) NEGATIVE Urine Ketones (NEGATIVE) NEGATIVE Urine Blood (NEGATIVE) NEGATIVE Urine Nitrite (NEGATIVE) NEGATIVE Urine Bilirubin (NEGATIVE) NEGATIVE Urine Urobilinogen (0.2 - 1.0 EU/dL) 0.2 Ur Leukocyte Esterase (NEGATIVE) POSITIVE Urine RBC (0 - 1 rbc/hpf) NONE SEEN Urine WBC (0 - 1 wbc/hpf) 1-3 Ur Epithelial Cells (0 - 5 EPI/hpf) 0-1 Urine Bacteria (NONE SEEN) TRACE (<1+) Urine Glucose (NEGATIVE) NEGATIVE Urine Comment CULTURE INDICATED Microbiology Date/Time Procedure - Status Source Growth 06/13 1845 MRSA Screen - RECD NASAL 06/13 1035 Urine Culture - RECD URINE CATH Assessment and Plan Problem List 1. A-fib Plan Is stable. 2. Stroke Plan Post CVA and right paralysis; will check on MRI today ? help prognosis and family decisions on care goals. 3. Pancytopenia Plan chronic
--- NOTE | 2016-06-14 09:47 | NUR ---
TELE D/C PER DR. SANTILLAN.
--- NOTE | 2016-06-14 10:11 | NUR ---
NUTRITION ASSESSMENT: S: Pt admitted with decreased mental status changes, fall, stoke. PMH includes HTN, RA, CHF, A-fib, GIB, bilateral leg pain, bowel problems. Pt with right sided weakness, no gag reflex, pt is NPO and to have MRI today. Spoke wioumou Hdz this am, pt to have MRI and will be NPO for now, will determine if pt needs swallow eval after MRI results and will discuss with family. Per MD pts wishes are for no agressive interventions, no tube feeding unless pt asks for it to herself. O: Diet rx: NPO NKFA Wts: 69.9 kg Ht: 65" IBW: 50-65 kg BMI: 25.6 Est Kcals: ~8192-8272 kcals per day Est Pro: ~60-70 g per day Est Fluids: 4250-0301 mls per day Meds Incl: IVFs, see eMar for details. Labs incl: (06/14) glucose 92, BUN 36, Creat 1.3, Na+ 144, K+ 3.8, Mag 1.7, Ca+ 8.1, total pro 6.2, albumin 2.4, HCT 23.6, HGB 7.7, MCV 110, MCH 36 Skin: Lambert Score: 12; skin fragile, erythema coccyx, waffle in place A: Pt is currenltly NPO, awaiting MRI s/p CVA. Rev'd meds and labs. Pt appears to be at high nutritional risk 2/2 dx, advanced age, fragile skin, NPO. RD to follow up and avail for further consult prn. P: 1. RD to follow up and avail for consult if desired.
[2016-06-14 10:24] VITALS: BP 137/62
--- NOTE | 2016-06-14 12:46 | NUR ---
WENT DOWN FOR MRI, TOLERATED PROCEDURE WELL, BACK FROM MRI NOW.
--- NOTE | 2016-06-14 12:55 | DIAGNOSTIC IMAGING REPORT ---
PROCEDURE: MR BRAIN WITHOUT CONTRAST INDICATION: stroke right paralysis TECHNIQUE: Sagittal T1 FLAIR; coronal T2; axial T1 FLAIR, T2-weighted FLAIR, T2 FSE, gradient echo T2, DWI and ADC sequences. COMPARISON: Head CTA 06/13/2016. FINDINGS: 5.5 x 4.2 x 5.0 cm left insula and frontotemporal acute CVA. There is effacement of the sulci and but there is no midline shift, acute or remote hemorrhage. Moderate cortical atrophy with mild of white matter chronic ischemic changes. Normal ventricular system. Right occipital craniotomy with 3.0 x 3.2 cm underlying encephalomalacia. Sinuses and mastoids are clear. IMPRESSION: 1. Left insula and frontotemporal acute CVA with effacement of the sulci but no hemorrhage. 2. Moderate atrophy with mild white matter chronic ischemic changes 3. Right occipital craniotomy and underlying encephalomalacia 4. Results discussed with Dr. Hdz
[2016-06-14 14:29] VITALS: BP 149/54
--- NOTE | 2016-06-14 15:55 | NUR ---
In to see patient with report of skin tear sustained during testing. Please see photographic wound assesment sheet for picture and wound characteristics, wound cleansed with NS, Hydraguard applied around wound edge for protection against maceration. Xeroform double layer applied to wound base for antimicrobial protectiona and moisture, covered with gauze and transparent film tape. Report given to Patients RN, will change daily to q other day, and continue to monitor.
--- NOTE | 2016-06-14 18:13 | NUR ---
NO CHANGE INITAL ASSESSMENT, VOIDING WELL VIA FOELY CATH, MOVES LEFT ARM WITHOUT PURPOSE AND ONLY RARELY. HAD AN MRI TODAY, TOLERATED IT WELL. SMALL SKIN TEAR ON R ARM, DR. RAMEY AND WOUND CARE NURSE LORTEO ZEPEDA NOTIIED. GOKUL ZEPEDA CLEANED AND DRESSED THE WOUND WHICH HAS BEEN PHOTOGRAPHED.
[2016-06-14 18:38] VITALS: BP 157/79
[2016-06-14 22:08] VITALS: BP 152/67
[2016-06-15] VITALS (7 sets, daily range): BP systolic 132–173; BP diastolic 50–82
--- NOTE | 2016-06-15 02:32 | NUR ---
Pt opens eyes with touch/verbal stimuli, no movement to right arm/leg, will pull at 02 and face with left hand which has decreased with use of left hand mitt,moves left leg, CMS intact, pt has been between 6L n/c and 10-15L Oxymask to maintain sats 92%, pt turned/repositioned every 2 hrs, observed moving self slightly in bed, pupils/equal/reactive. Pt desat on 15L Oxymask but HR 140-150 sustained, SBP 170's, notified physician regarding 02 needs and increased agitatation. Morphine order received and given. Pt relaxing at this time and 02 sats 96% on 10L Oxymask. Bed alarm on for safety.
--- NOTE | 2016-06-15 07:57 | Progress Note ---
Subjective General 86yo female with left frontal CVA and right hemiparesis, pt of Dr. Hdz, DNR/ DNI status. Dr. Hdz reports family has declined tube feeding and the plan is to see if she regains alertness to where she can tolerate po intake. Hospice care has been discussed with family by Dr. Hdz but has not bee chosen at this time. Nursing reports some increased alertness through the night. Responds to some commands with movements of left arm, and taking deep breaths on request. Physical Exam Vital Signs / I&Os Vital Signs Date Time Temp Pulse Resp B/P Pulse O2 O2 Flow FiO2 Ox Delivery Rate 06/15 0658 98.6 101 20 173/75 100 Mask 8.0 03/04 0405 92 Mask 8.0 03/04 0209 98.8 136 20 173/82 90 Mask 14.0 03/04 0118 121 93 Nasal 6.0 Cannula / 2208 97.7 106 21 152/67 93 Mask 10.0 /03 1940 SIMPLE MASK 06/14 1848 128 03/ 1838 99.1 95 22 157/79 88 Nasal 2.0 Cannula 03/03 1429 98.8 69 20 149/54 95 Nasal 2.0 Cannula 03/03 1024 99.1 99 16 137/62 100 Nasal 2.0 Cannula / 0830 Nasal Cannula I&O 06/14 0800 03/03 1600 03/04 0000 Intake Total 958 1008 Output Total 950 400 375 Balance 8 -400 633 General Appearance Mild distress Lungs Clear to auscultation Cardiovascular Regular rate and rhythm Abdomen Normal bowel sounds Extremities No edema Skin No Rashes Assessment and Plan Problem List 1. Stroke Plan Persistent dense hemiparesis. Does not appear alert enough to tolerate po intake. 2. CHF exacerbation Plan continue to monitor fluid status. 3. A-fib Plan Monitoring on telemetry. Oxygen supplementation.
--- NOTE | 2016-06-15 08:22 | NUR ---
MITTEN RESTRAINT REMOVED FROM L HAND. HAS NO RESTRAINT ON AT ALL AT THIS TIME. KEEPS PULLING AT OR PUSHING OFF OXY MASK. OXY MASK REMOVED AND IS ON RA AT THIS TIME. SATS 90-92% ON RA AT THIS TIME.
--- NOTE | 2016-06-15 10:53 | NUR ---
O2 SATS ON 15LPM VIA OXYMASK WENT FROM 100 TO 88% WITH RESP RATE OF 22-24. DR. POTTER NOTIFIED AND PCXR ORDERED. AT THIS TIME SATS HAVE COME BACK TO 94-95%.
--- NOTE | 2016-06-15 11:22 | DIAGNOSTIC IMAGING REPORT ---
PROCEDURE: XR CHEST 1 VIEW INDICATION: LOW O2 SAT TECHNIQUE: Portable AP view 11:00 a.m. COMPARISON: Chest x-ray 06/13/2016. FINDINGS: Cardiomegaly with marked progression of pulmonary vascular congestion. There are bilateral pleural effusions with new bilateral alveolar opacities consistent with pulmonary edema. Artifact over the left lung base medially. Moderate degenerative changes of the spine. IMPRESSION: 1. Marked progression of CHF 2. Results called to the floor and hospitalist (voicemail).
--- NOTE | 2016-06-15 12:30 | NUR ---
DR. POTTER ASKED DR. SANTILLAN TO CONSULT. DR. SANTILLAN ORDERED TELE, ABG AND EKG AND NITRO PASTE.
--- NOTE | 2016-06-15 12:55 | NUR ---
EKG DONE AND O2 CHANGED TO NRB AT 100%, BLOOD GASES DRAWN. MED W/ 5MG LOPRESSOR IVP FOR HR >100.
--- NOTE | 2016-06-15 14:08 | Progress Note ---
Subjective General cOUNSELLED WITH SON AND TWO DAUGHTERS re declining condition and CHF and CVA with hemiparesis. ABG and EKG reviewed. Reji Diggs consultation appreciated. Family continues to continue to support DNR/DNI status. Physical Exam Vital Signs / I&Os Vital Signs Date Time Temp Pulse Resp B/P Pulse O2 O2 Flow FiO2 Ox Delivery Rate 06/15 1044 98.6 114 24 150/73 93 Mask 16.0 / 0800 8.0 / 0746 Mask 8.0 /04 0658 98.6 101 20 173/75 100 Mask 8.0 03/04 0405 92 Mask 8.0 03/ 0209 98.8 136 20 173/82 90 Mask 14.0 / 0118 121 93 Nasal 6.0 Cannula 06/14 2208 97.7 106 21 152/67 93 Mask 10.0 06/14 1940 SIMPLE MASK 06/14 1848 128 06/14 1838 99.1 95 22 157/79 88 Nasal 2.0 Cannula 06/14 1429 98.8 69 20 149/54 95 Nasal 2.0 Cannula I&O 06/14 0800 /03 1600 03/04 0000 Intake Total 958 1008 Output Total 950 400 375 Balance 8 -400 633 Lungs rales in lower chest bilaterally. Cardiovascular Regular rate and rhythm Abdomen Normal bowel sounds Extremities Trace edema. LAB Results Laboratory Tests 06/15 06/15 06/15 1208 1218 1218 Blood Gas Sample Site LR Total CO2 (24.0 - 30.0 mmol/L) 25.0 ABG pH (7.35 - 7.45) 7.37 ABG pCO2 at Pt Temp (35 - 45 mmHg) 41.1 ABG pO2 at Pt Temp (60.0 - 80.0 mmHg) 79.4 ABG HCO3 (20.0 - 26.0 mmol/L) 23.8 ABG O2 Sat Calc/Carmelita (95.1 - 100.0 %) 95.9 ABG Base Excess (-6.0 - -6.0 mmol/L) -1.4 ABG Reduced Hgb (%) 4.0 ABG Carboxyhemoglobin (0.5 - 1.5 %) 1.9 ABG Methemoglobin (0.4 - 1.5 %) -0.3 Jesse Test YES Other Total Hgb (12.0 - 16.0 g/dL) 8.8 A-a O2 Gradient (7.0 - 14.0 mmHg) 579.5 Hgb O2 Saturation (95.0 - 100.0 %) 94.4 Respiration Rate (/MIN) 20 O2 Liters/Min (0 - 20 L/MIN) 15 Vent Mode NRB FiO2 (20 - 101 %) 100 Chemistry Troponin (0.00 - 1.5 ng/mL) 0.07 B-Natriuretic Peptide (5 - 100 pg/ml) 806 Assessment and Plan Problem List 1. CHF exacerbation Plan Lasix given. Will monitor fluid balance. Pt is off IV fluids at this time. 2. Stroke Plan Dense right hemiparesis. 3. Atrial fibrillation Plan Controlled rate.
--- NOTE | 2016-06-15 15:14 | NUR ---
OXYGEN CHANGED TO 10LPM VIA OXYMASK AT 1400 AND SO FAR O2 SATS ARE STAYING 100%.
--- NOTE | 2016-06-15 15:27 | Progress Note ---
Subjective General Medical Consultation Patient Name: Lauren Radford Admission Date: June 13, 2016 Consultation Date: June 15, 2016 Primary Care Provider: Ciro Hdz M.D. Attending Physician: Ciro dHz M.D. Requesting Physician: Nathan Baez M.D. Consulting Physician: Dakota Isabel M.D. CODE STATUS: NO CODE Room: [address] [place] [address] Historian: Family, previous medical records, Dr. Baez Reliability: Good Chief Complaint: Altered mental status, CVA, respiratory distress History of Present Illness: The patient is a 86-year-old white female with a significant past medical history of hypertension, atrial fibrillation, CHF, recent CVA, who has experienced increasing respiratory difficulty over the past 24 hours. Secondary to the above I was consulted by Nathan Baez M.D. The history of present illness began in bili prior to the patient's admission when she developed altered mental status and weakness. Subsequent evaluation showed the patient to have a large frontal temporal acute CVA. This was associated with aphasia, altered mental status, and right-sided weakness. Over the past 24 hours the patient has developed atrial fibrillation with rapid ventricular response with associated increasing shortness of breath. Chest x- ray obtained shows findings consistent with CHF/pulmonary edema. The patient remains in atrial fibrillation with rapid ventricular response. The patient has received Lasix but routine medications including beta blockers, Jose inhibitors, and diuretics have not been administered secondary to the patient's nothing by mouth status. Laboratory obtained today shows the patient to have elevated BNP of 806 ( admission BNP 193), chest x-ray consistent with CHF/pulmonary edema. Arterial blood gas on nonrebreather pH 7.37, PCO2 41.1, PO2 79.4. PAST MEDICAL HISTORY Illnesses: 1. Atrial fibrillation 2. CHF 3. Hyperlipidemia 4. Left-sided CVA with right-sided weakness 5. Rheumatoid arthritis 6. Fungal dermatitis 7. Degenerative joint disease 8. History of GI bleeding 9. Chronic anemia-macrocytic Allergies: 1. Penicillin Medications: (Preadmission medications) 1. Vitamin C 250 mg t.i.d. 2. Gabapentin 100 mg p.o. 1-3 at bedtime p.r.n. for leg pain at night. 3. Nystop antifungal apply twice a day as needed for toe infection between the toes. 4. Carvedilol 6.25 mg p.o. b.i.d. for high blood pressure. 5. Aspirin 81 mg p.o. daily. 6. Acetaminophen 1 tablet of 325 mg every 4 hours as needed for pain. 7. Omeprazole 20 mg p.o. b.i.d. 8. Lisinopril 5 mg p.o. daily. 9. Zocor 20 mg p.o. at bedtime. 10. Lasix 40 mg p.o. daily. Surgery: 1. Right ear surgery 2. Back surgery 3. Total knee [id number] 4. Tonsillectomy Injuries: 1. No significant Hospitalizations: 1. For above surgery and medical problems FAMILY HISTORY Parents: 1. Father, Xavi, , 89, cause unknown, 2. Mother, noreen, , 60, myocardial infarction Siblings: 1. Male, Xavi, , 60, cause unknown 2. Male, Max, , 70, cause unknown Children: 1. Male, Robert, living, 57, healthy 2. Female, Lizeth, living, 65, arthritis 3. Male, Tad, living, 49, alcoholism, hepatic failure 4. Female, Lisbet, living, 64, arthritis, fibromyalgia, chronic pain Other significant family history: None SOCIAL HISTORY 1. Marital Status: 2. Presybeterian: None 3. Education: 12th grade 4. Employment History: Homemaker 5. Occupational health exposures: None HABITS 1. Tobacco: 25-50 pack years, stopped 2 years prior to admission 2. Drugs: None 3. Alcohol: One ounce per month 4. Caffeine: None HEALTH SUPERVISION Item/Test 1. Unknown IMMUNIZATIONS: 1. Pneumococcal: Unknown 2. Influenza: Unknown 3. Tetanus: Unknown ADVANCED DIRECTIVES: 1. Living well: Yes 2. POLST: Yes 3. CODE STATUS: NO CODE-DNR/DNI 4. Durable Power Medical Laboratory Technical Officer Health care: Yes 5. Donor card: No REVIEW OF SYSTEMS Remarkable for those things stated in the history of present illness and past medical history. Seventeen point review of system completed with the following notable findings: General: Fatigue, pain Eyes cataracts Cardiovascular: Irregular heartbeat, ankle swelling, shortness of breath Gastrointestinal: Rectal bleeding Blood and lymphatic: Anemia Physical Exam Vital Signs / I&Os Vital Signs Date Time Temp Pulse Resp B/P Pulse O2 O2 Flow FiO2 Ox Delivery Rate 06/15 1423 97.9 93 20 161/70 100 Mask 16.0 03/04 1044 98.6 114 24 150/73 93 Mask 16.0 03/04 0800 8.0 03/04 0746 Mask 8.0 03/04 0658 98.6 101 20 173/75 100 Mask 8.0 03/04 0405 92 Mask 8.0 03/04 0209 98.8 136 20 173/82 90 Mask 14.0 03/04 0118 121 93 Nasal 6.0 Cannula 06/14 2208 97.7 106 21 152/67 93 Mask 10.0 06/14 1940 SIMPLE MASK 06/14 1848 128 06/14 1838 99.1 95 22 157/79 88 Nasal 2.0 Cannula I&O 06/15 0000 06/14 1600 06/14 0800 Intake Total 1008 958 Output Total 375 400 950 Balance 633 -400 8 General Appearance Cooperative, Mild distress, Responsive to verbal commands, lethargic Lungs bilateral diffuse rhonchi with basilar rales bilaterally Cardiovascular Normal S1 and S2, irregular rhythm, tachycardic Abdomen Normal bowel sounds, Soft, No tenderness, No guarding Extremities No cyanosis, No clubbing Neurological Right-sided weakness present. LAB Results Laboratory Tests 06/15 06/15 06/15 06/15 1220 1218 1218 1208 Blood Gas Sample Site LR Total CO2 (24.0 - 30.0 mmol/L) 25.0 ABG pH (7.35 - 7.45) 7.37 ABG pCO2 at Pt Temp (35 - 45 mmHg) 41.1 ABG pO2 at Pt Temp (60.0 - 80.0 mmHg) 79.4 ABG HCO3 (20.0 - 26.0 mmol/L) 23.8 ABG O2 Sat Calc/Carmelita (95.1 - 100.0 %) 95.9 ABG Base Excess (-6.0 - -6.0 mmol/L) -1.4 ABG Reduced Hgb (%) 4.0 ABG Carboxyhemoglobin (0.5 - 1.5 %) 1.9 ABG Methemoglobin (0.4 - 1.5 %) -0.3 Jesse Test YES Other Total Hgb (12.0 - 16.0 g/dL) 8.8 A-a O2 Gradient (7.0 - 14.0 mmHg) 579.5 Hgb O2 Saturation (95.0 - 100.0 %) 94.4 Respiration Rate (/MIN) 20 O2 Liters/Min (0 - 20 L/MIN) 15 Vent Mode NRB FiO2 (20 - 101 %) 100 Chemistry Troponin (0.00 - 1.5 ng/mL) 0.07 B-Natriuretic Peptide (5 - 100 pg/ml) 806 Vitamin B12 Pending Folate Pending TSH 3rd Generation Pending Assessment and Plan Problem List 1. CHF exacerbation Plan -Patient's current findings suggestive of exacerbation of CHF -Significant increase in BNP since admission -Chest x-ray shows findings consistent with CHF/pulmonary edema -Increasing O2 requirements patient currently on nonrebreather with adequate oxygen saturation. Patient showed significant hypoxemia on nasal cannula O2. A -a gradient has increased significantly to 579.5 from 40.5 on admission. -Patient recently has stopped JOSE inhibitor, beta dilshad, and oral diuretics. -Begin Vasotec 1.25 mg IV every 6 hours, nitroglycerin paste 1.5 inches topically every 6 hours, IV Lopressor 2.5/and 5 mg every 2 hours when necessary tachycardia (heart rate greater than 100/min), Lasix 40 mg IV twice a day -Monitor closely 2. Stroke Plan -Patient with large left-sided frontotemporal CVA with associated left-sided paresis. -Aspirin suppository 325 mg per rectum daily -Statin therapy when taken orally -We'll discuss with Dr. Baez/Andreina any contraindications to long-term anticoagulation. Patient apparently has a previous history of GI bleeding. -Patient with significant neurological deficit and inability to swallow at this time. Prognosis guarded. Patient's family's aware of the severity of her current stroke and possible poor outcome. -Patient's family reemphasized DNR/DNI status but wished ongoing medical support /treatment including BiPAP therapy if necessary. 3. Atrial fibrillation Plan -Patient with findings of atrial fibrillation with rapid ventricular response -Patient off beta dilshad therapy due to nothing by mouth status -Patient placed back on Lopressor 2.5-5 mg IV every 2 hours as needed for heart rate greater than 100 bpm -Should the patient's status improve would consider long-term anticoagulation if not contraindicated -Echocardiogram ordered -Check thyroid function studies 4. Anemia Plan -Patient with findings of macrocytic anemia -No recent B12/folate levels -Check B12/folate -Monitor 5. Hypertension Plan -Patient with long-standing hypertension -Patient's blood pressure elevated but she is off her routine antihypertensive medications -Vasotec 1.25 mg IV every 6 hours, Lopressor 2.5-5 mg IV every 2 hours when necessary heart rate greater than 100 bpm, Lasix 40 mg IV twice a day, nitroglycerin 1.5 inches topically every 6 hours -Monitor 6. Malnutrition Status Acute Onset Date Unknown Plan -Albumin low at 2.6 -No history of significant weight loss noted in chart but not confirmed with family -Patient nothing by mouth at this time secondary to dysphagia -Swallowing evaluation if status improves -Consider PEG tube placement if per family's wishes and persistent dysphagia Current status: Critical, unstable Anticipated discharge date: Anticipated discharge 4-5 days with improved status Anticipated discharge placement: [facility] facility Patient care time: Time spent in chart review, patient interview, physical exam, CPOE, and care documentation: 70 minutes Visit to patient today: 3 Complexity of care: High E&M Codes Inpatient Consult: Comp-High/[id number]
--- NOTE | 2016-06-15 17:05 | NUR ---
PARTLY OPENS EYES WHEN SPOKEN TO, SQUEEZES WITH HER LEFT HAND WHEN ASKED, BUT FOLLOWS NO OTHER COMMANDS. R ARM REMAINS FLACCID AND HARDLY MOVES LEGS AT ALL. REMAINS IN A-FIB RATE 70-120. BACK ON 100%NRB, O2 DELIVER HAS GONE FROM 10LPM VIA OXYMASK TO 100%NRB, BACK TO OXY MASK AT 10LPM AND THEN BACK TO 100%NRB DEPENDING ON O2 SAT WHICH SOMETIMES DROPS DOWN TO LOW 80S. MED WITH 5MG LOPRESSOR IVP X2 FOR HR>100. SON AND BOTH DAUGHTERS HAVE BEEN HERE AND HAVE SEEN DR. POTTER AND DR. SANTILLAN.
--- NOTE | 2016-06-15 22:30 | NUR ---
Patient remains on high flow oxygen per non rebreath mask. She was slightly incontinent of stool. Sacral dressing dry and intact. She continues on two hourly turns and regular mouth care.
[2016-06-16 02:44] VITALS: BP 121/57
[2016-06-16 06:51] VITALS: BP 145/62
--- NOTE | 2016-06-16 08:14 | Progress Note ---
Subjective General Note Date: June 16, 2016 Admission Date: June 13, 2016 Hospital Day: 4 PCP: iCro Hdz M.D. Status: Inpatient Advanced Directive: NO CODE Room: 302 Brief History: The patient is a 86-year-old white female with a significant past medical history of atrial fibrillation, CHF, hyperlipidemia, left-sided CVA with right-sided weakness, rheumatoid arthritis, degenerative joint disease, chronic anemia, who presented to [facility] emergency room on the day of admission secondary to complaints of altered mental status and right-sided weakness. [facility] ER evaluation was consistent with left-sided CVA with right-sided weakness with altered mental status, atrial fibrillation, CHF. Secondary to the above, the patient was admitted by Ciro Hdz M.D. for further evaluation and treatment. For other history present illness, past medical history, family history, social history, review of systems, and admission physical examination please see the patient's history and physical examination and ER visit note in the patient's medical record. Subjective: The patient has improved status today. Much more alert. Able to follow commands. No meaningful verbal interaction. Persistent right-sided weakness Patient requests: None Medications and Allergies Medications Current Medications Sig/Michi Start time Last Medication Dose Route Stop Time Status Admin Enalaprilat 1.25 MG Q6HR 06/15 1500 AC 06/16 IV 0531 Metoprolol Tartrate See Dose Q2H PRN 06/15 1445 AC 06/16 Insts (1) IV 0321 Nitroglycerin 1 GM Q6HR / 1230 AC 06/16 TOP 0531 Morphine Sulfate 2 MG Q1H PRN / 0230 AC 06/16 IV 0148 Sodium Chloride/ 1,000 ML ASDIRECTED 06/13 1900 AC 06/14 Electrolytes IV 1741 Dose Instructions: (1)Metoprolol Tartrate: 2.5 - 5 MG Allergies Coded Allergies: NKA (06/13/16) Physical Exam Vital Signs / I&Os Vital Signs Date Time Temp Pulse Resp B/P Pulse O2 O2 Flow FiO2 Ox Delivery Rate 06/16 0715 8.0 / 0651 98.1 125 145/62 100 Mask 9.0 03/05 0244 98.8 123 19 121/57 100 Mask 12.0 03/04 2357 111 18 134/58 100 Mask 14.0 03/04 2230 14.0 Non-Rebreather Mask 06/15 2214 98.1 112 17 132/50 100 Mask 14.0 03/04 1808 97.9 110 16 136/54 100 Mask 14.0 03/04 1423 97.9 93 20 161/70 100 Mask 16.0 03/04 1245 15.0 03/ 1044 98.6 114 24 150/73 93 Mask 16.0 I&O 06/16 0000 03/04 1600 03 0800 Intake Total 0 0 Output Total 400 900 400 Balance -400 -900 -400 General Appearance Alert, Cooperative, Mild distress Lungs Normal air movement, Minimal basilar rales. No wheezes Cardiovascular Normal S1 and S2, Irregular rhythm, tachycardic Abdomen Normal bowel sounds, Soft, No tenderness, No guarding Extremities No cyanosis, No clubbing Neurological Persistend (R) sided weakness LAB Results Laboratory Tests 06/16 06/16 06/16 06/15 06/15 0400 0400 0400 1220 1218 Chemistry Plasma Sodium (136 - 145 mmol/L) 147 Plasma Potassium (3.5 - 5.1 mmol/L) 3.9 Plasma Chloride (98 - 107 mmol/L) 111 CO2 (Enzymatic) (21 - 32 mmol/L) 27 BUN (7 - 18 mg/dL) 41 Creatinine (0.6 - 1.3 mg/dL) 1.4 Est GFR ( Amer) (mL/min) 45.71 Est GFR (Non-Af Amer) (mL/min) 37.72 Glucose (70 - 110 mg/dL) 107 Plasma Calcium (8.5 - 10.1 mg/dL) 8.4 Plasma Magnesium (1.8 - 2.4 mg/dL) 2.3 Total Bilirubin (0.0 - 1.0 mg/dL) 0.4 AST (15 - 37 U/L) 16 ALT (12 - 78 U/L) 16 Alkaline Phosphatase (46 - 116 U/L) 60 Troponin (0.00 - 1.5 ng/mL) 0.08 0.07 B-Natriuretic Peptide (5 - 100 pg/ml) 558 Total Protein (6.4 - 8.2 g/dL) 6.4 Albumin (3.3 - 5.0 g/dL) 2.4 Vitamin B12 (211 - 946 pg/mL) 1367 Folate (>3.0 ng/mL) 40.0 TSH 3rd Generation (0.30 - 3.74 uIU/mL) 1.478 Hematology WBC (4.5 - 11.5 K/uL) 8.5 RBC (4.00 - 5.20 M/uL) 2.21 Hgb (12.0 - 16.0 gm/dL) 7.8 Hct (36.0 - 46.0 %) 24.1 MCV (80 - 100 fL) 109 MCH (26 - 34 pg) 35 RDW (11.6 - 14.8 %) 14.3 Neut % (Auto) (50 - 75 %) 81.0 Lymph % (Auto) (25 - 40 %) 7.4 [place] % (Auto) (3 - 14 %) 11.3 Eos % (Auto) (0 - 4 %) 0.2 Baso % (Auto) (0 - 2 %) 0.1 Plt Count, EDTA (150 - 400 K/uL) 145 PUBS MCHC (31 - 37 g/dL) 32 /04 06/15 1218 1208 Blood Gas Sample Site LR Total CO2 (24.0 - 30.0 mmol/L) 25.0 ABG pH (7.35 - 7.45) 7.37 ABG pCO2 at Pt Temp (35 - 45 mmHg) 41.1 ABG pO2 at Pt Temp (60.0 - 80.0 mmHg) 79.4 ABG HCO3 (20.0 - 26.0 mmol/L) 23.8 ABG O2 Sat Calc/Carmelita (95.1 - 100.0 %) 95.9 ABG Base Excess (-6.0 - -6.0 mmol/L) -1.4 ABG Reduced Hgb (%) 4.0 ABG Carboxyhemoglobin (0.5 - 1.5 %) 1.9 ABG Methemoglobin (0.4 - 1.5 %) -0.3 Jesse Test YES Other Total Hgb (12.0 - 16.0 g/dL) 8.8 A-a O2 Gradient (7.0 - 14.0 mmHg) 579.5 Hgb O2 Saturation (95.0 - 100.0 %) 94.4 Respiration Rate (/MIN) 20 O2 Liters/Min (0 - 20 L/MIN) 15 Vent Mode NRB FiO2 (20 - 101 %) 100 Chemistry B-Natriuretic Peptide (5 - 100 pg/ml) 806 Assessment and Plan Problem List 1. CHF exacerbation Plan -Status improved. -Decreased O2 requirements -No respiratory distress today -Fluid balance negative -Continue Vasotec 1.25 mg IV every 6 hours, Nitropaste 1 inch topically every 6 hours, Lopressor 2.5-5 mg IV every 2 hours when necessary heart rate greater than 100, and Lasix 20 mg IV twice a day. -Monitor for excessive diuresis -BNP improved 2. Stroke Plan -Persistent right-sided weakness -Mental status definitely improved -Patient follows conversation with appropriate response to commands -Minimal verbal interaction -Swallowing evaluation in a.m., patient to remain nothing by mouth at this time -Continue aspirin suppository -Consider anticoagulation if no contraindications -Statins when taking well orally -Physical therapy evaluation a.m. 3. Atrial fibrillation Plan -Status with use of beta blockers -Continue present therapy switching to oral medications when patient taking well orally -See above -Echocardiogram ordered 4. Anemia Plan -Patient with findings of macrocytic anemia -B12, folate levels within normal limits -Stable -H&H today 7.8/24.1 -Monitor 5. Hypernatremia Status Acute Onset Date 06/16/16 Plan -Patient with findings of mild hyponatremia -Sodium 147 -IV fluid therapy per Dr. Baez 6. Malnutrition Status Acute Onset Date Unknown Plan -Patient with mild malnutrition -Swallowing evaluation -Patient will need nutritional support if unable to swallow long-term. -Follow up with Dr. Baez/Andreina Current status: Fair, unstable but improved Anticipated discharge date: Anticipated discharge in 2-3 days with improved status Anticipated discharge placement: [facility] facility Patient care time: Time spent in chart review, patient interview, physical exam, CPOE, and care documentation: 25 minutes Visit to patient today: 1 Complexity of care: Moderate We will sign off at this time. Call if any further questions. E&M Codes Rounding: Inpt-Moderate/[id number]
--- NOTE | 2016-06-16 09:00 | Progress Note ---
Subjective General 86yo female with left frontal CVA and right hemiparesis, pt of Dr. Hdz, DNR/ DNI status. Dr. Hdz reports family has declined tube feeding and the plan is to see if she regains alertness to where she can tolerate po intake. Hospice care has been discussed with family by Dr. Hdz but has not been chosen at this time. Pt had irregular weak response to commands yesterday. Today she is more consistently following commands, making attempts to speak and holding head up in sitting position. Squeezes hand on left to command. Opens eyes weakly on command. Physical Exam Vital Signs / I&Os Vital Signs Date Time Temp Pulse Resp B/P Pulse O2 O2 Flow FiO2 Ox Delivery Rate 06/16 0715 8.0 03/ 0651 98.1 125 145/62 100 Mask 9.0 03/05 0244 98.8 123 19 121/57 100 Mask 12.0 03/04 2357 111 18 134/58 100 Mask 14.0 03/04 2230 14.0 Non-Rebreather Mask / 2214 98.1 112 17 132/50 100 Mask 14.0 03/04 1808 97.9 110 16 136/54 100 Mask 14.0 03/04 1423 97.9 93 20 161/70 100 Mask 16.0 03/04 1245 15.0 03/04 1044 98.6 114 24 150/73 93 Mask 16.0 I&O 03/04 0800 03/04 1600 03/05 0000 Intake Total 0 0 Output Total 400 900 400 Balance -400 -900 -400 General Appearance No acute distress, No verbal response. Lungs Crackles in bases. Cardiovascular Regular rate and rhythm Abdomen Normal bowel sounds, Soft Extremities No edema Skin No Rashes LAB Results Laboratory Tests 06/15/ 1208 1218 1218 1220 0400 Blood Gas Sample Site LR Total CO2 (24.0 - 30.0 mmol/L) 25.0 ABG pH (7.35 - 7.45) 7.37 ABG pCO2 at Pt Temp (35 - 45 mmHg) 41.1 ABG pO2 at Pt Temp (60.0 - 80.0 mmHg) 79.4 ABG HCO3 (20.0 - 26.0 mmol/L) 23.8 ABG O2 Sat Calc/Carmelita (95.1 - 100.0 %) 95.9 ABG Base Excess (-6.0 - -6.0 mmol/L) -1.4 ABG Reduced Hgb (%) 4.0 ABG Carboxyhemoglobin (0.5 - 1.5 %) 1.9 ABG Methemoglobin (0.4 - 1.5 %) -0.3 Jesse Test YES Other Total Hgb (12.0 - 16.0 g/dL) 8.8 A-a O2 Gradient (7.0 - 14.0 mmHg) 579.5 Hgb O2 Saturation (95.0 - 100.0 %) 94.4 Respiration Rate (/MIN) 20 O2 Liters/Min (0 - 20 L/MIN) 15 Vent Mode NRB FiO2 (20 - 101 %) 100 Chemistry Plasma Sodium (136 - 145 mmol/L) 147 Plasma Potassium (3.5 - 5.1 mmol/L) 3.9 Plasma Chloride (98 - 107 mmol/L) 111 CO2 (Enzymatic) (21 - 32 mmol/L) 27 BUN (7 - 18 mg/dL) 41 Creatinine (0.6 - 1.3 mg/dL) 1.4 Est GFR ( Amer) (mL/min) 45.71 Est GFR (Non-Af Amer) (mL/min) 37.72 Glucose (70 - 110 mg/dL) 107 Plasma Calcium (8.5 - 10.1 mg/dL) 8.4 Plasma Magnesium (1.8 - 2.4 mg/dL) 2.3 Total Bilirubin (0.0 - 1.0 mg/dL) 0.4 AST (15 - 37 U/L) 16 ALT (12 - 78 U/L) 16 Alkaline Phosphatase (46 - 116 U/L) 60 Troponin (0.00 - 1.5 ng/mL) 0.07 B-Natriuretic Peptide (5 - 100 pg/ml) 806 Total Protein (6.4 - 8.2 g/dL) 6.4 Albumin (3.3 - 5.0 g/dL) 2.4 Vitamin B12 (211 - 946 pg/mL) 1367 Folate (>3.0 ng/mL) 40.0 TSH 3rd Generation (0.30 - 3.74 uIU/mL) 1.478 Hematology WBC (4.5 - 11.5 K/uL) 8.5 RBC (4.00 - 5.20 M/uL) 2.21 Hgb (12.0 - 16.0 gm/dL) 7.8 Hct (36.0 - 46.0 %) 24.1 MCV (80 - 100 fL) 109 MCH (26 - 34 pg) 35 RDW (11.6 - 14.8 %) 14.3 Neut % (Auto) (50 - 75 %) 81.0 Lymph % (Auto) (25 - 40 %) 7.4 [place] % (Auto) (3 - 14 %) 11.3 Eos % (Auto) (0 - 4 %) 0.2 Baso % (Auto) (0 - 2 %) 0.1 Plt Count, EDTA (150 - 400 K/uL) 145 PUBS MCHC (31 - 37 g/dL) 32 03/05 03/05 0400 0400 Chemistry Troponin (0.00 - 1.5 ng/mL) 0.08 B-Natriuretic Peptide (5 - 100 pg/ml) 558 Assessment and Plan Problem List 1. Stroke Plan Some improvement in activity level. Will continue to monitor and support. 2. CHF exacerbation Plan Improved BNP and clinically improved. 3. Atrial fibrillation Plan Stable with prn b-dilshad to control rate. 4. Anemia Plan Stable chronic anemia.
[2016-06-16 13:20] VITALS: BP 154/66
[2016-06-16 14:14] VITALS: BP 154/72
--- NOTE | 2016-06-16 19:17 | NUR ---
HX: RECENT CVA WITH RIGHT SIDED WEAKNESS. UNABLE TO MAKE NEEDS KNOWN. Q 2 HOUR CHECKS. METOPROLOL 5MG IV GIVEN A FEW TIMES TODAY FOR HR GREATER THAN 100. ON TELE AND IN A-FIB. PT AWAKENS AGITATED, PULLING ON IV LINE AND BARDALES CATH. IV [id number] GIVEN AND PT SLEPT 4 HOURS. SATURATION ON 5L OXYMASK 100% TOOK PT OFF O2 AND RA SATURATION BETWEEN 95-97% WAS ABLE TO LEAVE ON RA FOR MOST OF THE DAY. DESATED TO LOW 80'S AROUND 1600. PLACED ON 02 2L PER NC AND SATURATION INCREASED TO 93-95% FAMILY AT THE BEDSIDE ALL DAY. SPOKE WITH FAMILY ABOUT POSITIONING PT Q2 HOURS AND THEY HAVE REQUESTED IF PT IS SLEEPING DO NOT DISTURB HER UNTIL SHE LOOKS OR ACTS UNCOMFORTABLE. MOUTH CARE DONE FREQUENTLY WHEN PT AWAKENED.
[2016-06-16 20:00] VITALS: BP 158/66
--- NOTE | 2016-06-16 20:23 | NUR ---
Pt will track with eyes when spoken too, squeezes with left hand when asked to, pt very restless pulling covers off fidgiting with pillows and covers, Morphine just given for discomfort, pt moves self in bed, continue with right sided weakness, rivera draining quantity sufficient output. Continue to monitor.
[2016-06-17] VITALS (9 sets, daily range): BP systolic 117–160; BP diastolic 54–87
--- NOTE | 2016-06-17 07:35 | Progress Note ---
Subjective General 86 year old who has a large L frontal stroke and has been a little more alert. Is able to follow some commands. Has been on some IVF mild and some mild CHF as well clinically. On O2 NC and was on a mask and would pull it off some. Physical Exam Vital Signs / I&Os Vital Signs Date Time Temp Pulse Resp B/P Pulse O2 O2 Flow FiO2 Ox Delivery Rate 06/17 0630 93 Nasal 6.0 Cannula 06/17 0614 98.2 117 16 117/54 93 Nasal 3.0 Cannula 06/17 0235 98.1 134 18 124/75 97 Nasal 2.0 Cannula 06/17 0008 98.4 109 20 135/75 99 Nasal 2.0 Cannula 06/16 2207 119 19 98 Nasal 2.0 Cannula 06/16 2000 98.6 119 20 158/66 98 Nasal 2.0 Cannula 06/16 1911 2.0 06/16 1836 97 Nasal 2.0 Cannula 06/16 1414 97.9 112 18 154/72 95 03 1320 128 154/66 06/16 1125 114 17 97 Room Air 06/16 0830 OXYMASK 5.0 I&O 06/17 0000 06/16 1600 06/16 0800 Intake Total 818 0 Output Total 350 700 750 Balance 468 -700 -750 General Appearance sleepy female no acute distress; non verbal HEENT right facial weakness, no gag reflex. Lungs coarse BS bilaterally Cardiovascular regular sounding heart rate a litte tachycardic. Abdomen Soft, No tenderness Extremities No edema LAB Results Laboratory Tests 06/17 06/17 0355 0355 Chemistry Plasma Sodium (136 - 145 mmol/L) 148 Plasma Potassium (3.5 - 5.1 mmol/L) 3.8 Plasma Chloride (98 - 107 mmol/L) 112 CO2 (Enzymatic) (21 - 32 mmol/L) 27 BUN (7 - 18 mg/dL) 40 Creatinine (0.6 - 1.3 mg/dL) 1.2 Est GFR ( Amer) (mL/min) 54.61 Est GFR (Non-Af Amer) (mL/min) 45.06 Glucose (70 - 110 mg/dL) 97 Plasma Calcium (8.5 - 10.1 mg/dL) 8.2 Plasma Magnesium (1.8 - 2.4 mg/dL) 2.0 Total Bilirubin (0.0 - 1.0 mg/dL) 0.4 AST (15 - 37 U/L) 17 ALT (12 - 78 U/L) 16 Alkaline Phosphatase (46 - 116 U/L) 58 B-Natriuretic Peptide (5 - 100 pg/ml) 669 Total Protein (6.4 - 8.2 g/dL) 6.4 Albumin (3.3 - 5.0 g/dL) 2.2 Hematology WBC (4.5 - 11.5 K/uL) 8.5 RBC (4.00 - 5.20 M/uL) 2.26 Hgb (12.0 - 16.0 gm/dL) 7.8 Hct (36.0 - 46.0 %) 24.4 MCV (80 - 100 fL) 108 MCH (26 - 34 pg) 35 RDW (11.6 - 14.8 %) 14.3 Neut % (Auto) (50 - 75 %) 84.8 Lymph % (Auto) (25 - 40 %) 5.1 [place] % (Auto) (3 - 14 %) 10.0 Eos % (Auto) (0 - 4 %) 0.1 Baso % (Auto) (0 - 2 %) 0 Plt Count, EDTA (150 - 400 K/uL) 133 PUBS MCHC (31 - 37 g/dL) 32 Assessment and Plan Problem List 1. Stroke Plan Post large stroke that has right paralysis and no gag reflex. Will get PT eval today and swallow eval as well. I have discussed her care with the son. Offered a couple approaches based on what her families desires are. Has 1- could put in g tube and feed her and work on rehab post swallow eval that she is likely to fail as no gag. 2- We could allow her to eat for comfort d/c to SNF and then follow. D/C monitoring and IVF and then allow for comfort eating with likely hospice or comfort only if she declines or aspirates. 2. Altered mental status Plan Has MS status changes that are a little better but still not having much meaningful communication. 3. Renal insufficiency Plan Chronic renal dz. Improved CR with extra fluid on board at this time. 4. Atrial fibrillation Plan Is with afib chronic and hx of asa for anticoag as she has chornic anemia and bleeding. Is now post CVA. BNP likely partially elevated due to the afib. Is likely to decline more with her afib/rate possible CHF when stopping all IVF if that is the goal of the family as not taking PO.
--- NOTE | 2016-06-17 08:19 | NUR ---
PT APPEARS COMFORTABLE AT THIS TIME. R ARM WITH NO MOVEMENT, NO PHYSICAL THERAPY NURSE. PT APHASIC, UNABLE TO COMMUNICATE NEEDS. GENERALLY DOES NOT FOLLOW COMMANDS. SHAKES HEAD "NO" WHEN ASKED IF SHE HAS PAIN. CALM, DOZING INTERMITTENTLY. DR. RAMEY IN TO SEE PATIENT AND COMMUNICATING WITH SON BY PHONE. AWAITING SWALLOW/PT EVALS TODAY. WCTM.
--- NOTE | 2016-06-17 10:00 | NUR ---
Pt presents with large left hemisphere CVA with aphasia and jyoti-paresis. OME revealed right sided weakness, with minimal lingual movement on command and absent gag reflex. Pt phonated at times during evaluation, but did not phonate or cough on command. Pt followed some simple one step directions during the evaluation. Trials of ice chip, ice water via straw and tsp, and puree textures were trialed. Oral prep phase was poor due to weakness, swallow reflex was mildly delayed and laryngeal excursion was complete. No overt s/s of aspiration were observed; however, pt did not demonstrate appropriate airway protection to initiate a PO diet at this time. In addition, oral care was completed after trials to assess bolus clearance and puree residue as well as dried phlegm was removed from base of tongue and palate, indicating poor bolus movement into the pharynx due to weakness and decreased sensation. Recommend pt be NPO with Q2 oral care and 1-2 ice chips after oral care. OFF TRACK BETTING MANAGER will follow the case to determine if further evaluation is warranted based on goals of care. If reassessment is appropriate tomorrow, please call or text [phone] to update. Discussed with RN, GAME BIRD FARMER, and RD. Luz Maria Rojas MA, CCC-OFF TRACK BETTING MANAGER
--- NOTE | 2016-06-17 10:19 | NUR ---
NUTRITION FOLLOW UP NOTE: Pt s/p swallow evaluation this am. Rev'd results with MACHINE TOOL ELECTRICIAN. Pt will be NPO except ice chips after q 2 oral care. Will await pts family response to these results. Pt currently not meeting nutritional needs and would suggest enteral nutrition if pt and family wishes, RD to continue to monitor closely.
--- NOTE | 2016-06-17 11:18 | ED MAR SUMMARY ---
..... Medication Administration Record [facility] [address] [place] [address] Patient: SUNIL TRINH Visit ID: [id number] 86y, F Weight: 77.1 kg Height/Length: 67 in BMI: 26.6 ALLERGIES: No Known Drug Allergy Start 11:40 06/13/2016 Joellen Gibson R.N. Medication Administered: IV NS (SALINE), Dose: IV Fluids over 1 hour(s), Rate: 999 mL/hr, Dispensed: 1000 mL bag, Site: #1 left AC. Medication Ordered: IV NS : initial bolus 1000 mL (1000 mL/hr), then none - (NOW). Given 15:16 06/13/2016 Amy Martin R.N. Medication Administered: LASIX [IVP], Dose: 60 mg IVP over 5 minute(s), Site: #1 left AC. Medication Ordered: Lasix IV 60 mg (NOW). Start 15:17 06/13/2016 Amy Martin R.N. Medication Administered: CEFTRIAXONE [IVPB], Dose: 2 gm IVPB over 20 minute(s), Rate: 150 mg/hr, Dispensed: 50 mL bag, Site: #1 left AC. Medication Ordered: Ceftriaxone IV 2 gm/50mL (NOW). Given 15:45 06/13/2016 Amy Martin R.N. Medication Administered: ASPIRIN [WV], Dose: 300 mg Supp/(WV) WV. Medication Ordered: Aspirin [place] 300 mg (NOW).
--- NOTE | 2016-06-17 11:18 | ED MED RECONCILIATION SUMMARY ---
Patient: SUNIL TRINH Medication Reconciliation Report [facility] VisitID: [id number] [address] [place] [address] 86y, F Registration Date/Time: 06/13/2016 Weight: 77.1 kg Height/Length: 67 in. BMI: 26.6 ALLERGIES: No Known Drug Allergy The patient's Home Medications are listed below: THE FOLLOWING MEDICATIONS NEED TO BE RECONCILED: Ferrous Sulfate Oral (325 (65 Fe) mg) 1 tablet, 2x a day Ipratropium [place] Inhalation 2 unit doses, 4x a day The source(s) of the original Home Medication information: Not obtained. The following Medications were given to the patient in the Emergency Department: IV NS IV Fluids bolus 0, then 999 mL/hr, administered: 06/13/2016 11:40:00 AM Lasix [IVP] IVP 60 mg, administered: 06/13/2016 3:16:00 PM Ceftriaxone [IVPB] IVPB bolus 0, then 2 gm 150 mg/hr, administered: 06/13/2016 3:17:00 PM Aspirin [MD] MD 300 mg, administered: 06/13/2016 3:45:00 PM The following Medications were prescribed to the patient: None.
--- NOTE | 2016-06-17 11:18 | ED DISCHARGE INSTRUCTIONS ---
Patient: SUNIL TRINH General Instructions [facility] VisitID: [id number] [address] [place] [address] 86y, F Registration Date/Time: 06/13/2016 Acute mental status change with stupor. Fall. (Electronically signed by Marisela Cheng MD 06/17/2016 7:21)
--- NOTE | 2016-06-17 11:18 | ED MED RECONCILIATION SUMMARY ---
Patient: SUNIL TRINH Medication Reconciliation Report [facility] VisitID: [id number] [address] [place] [address] 86y, F Registration Date/Time: 06/13/2016 Weight: 77.1 kg Height/Length: 67 in. BMI: 26.6 ALLERGIES: No Known Drug Allergy The patient's Home Medications are listed below: THE FOLLOWING MEDICATIONS NEED TO BE RECONCILED: Ferrous Sulfate Oral (325 (65 Fe) mg) 1 tablet, 2x a day Ipratropium [place] Inhalation 2 unit doses, 4x a day The source(s) of the original Home Medication information: Not obtained. The following Medications were given to the patient in the Emergency Department: IV NS IV Fluids bolus 0, then 999 mL/hr, administered: 06/13/2016 11:40:00 AM Lasix [IVP] IVP 60 mg, administered: 06/13/2016 3:16:00 PM Ceftriaxone [IVPB] IVPB bolus 0, then 2 gm 150 mg/hr, administered: 06/13/2016 3:17:00 PM Aspirin [NJ] NJ 300 mg, administered: 06/13/2016 3:45:00 PM The following Medications were prescribed to the patient: None.
--- NOTE | 2016-06-17 11:18 | ED MAR SUMMARY ---
..... Medication Administration Record [facility] [address] [place] [address] Patient: SUNIL TRINH Visit ID: [id number] 86y, F Weight: 77.1 kg Height/Length: 67 in BMI: 26.6 ALLERGIES: No Known Drug Allergy Start 11:40 06/13/2016 Joellen Gibson R.N. Medication Administered: IV NS (SALINE), Dose: IV Fluids over 1 hour(s), Rate: 999 mL/hr, Dispensed: 1000 mL bag, Site: #1 left AC. Medication Ordered: IV NS : initial bolus 1000 mL (1000 mL/hr), then none - (NOW). Given 15:16 06/13/2016 Amy Martin R.N. Medication Administered: LASIX [IVP], Dose: 60 mg IVP over 5 minute(s), Site: #1 left AC. Medication Ordered: Lasix IV 60 mg (NOW). Start 15:17 06/13/2016 Amy Martin R.N. Medication Administered: CEFTRIAXONE [IVPB], Dose: 2 gm IVPB over 20 minute(s), Rate: 150 mg/hr, Dispensed: 50 mL bag, Site: #1 left AC. Medication Ordered: Ceftriaxone IV 2 gm/50mL (NOW). Given 15:45 06/13/2016 Amy Martin R.N. Medication Administered: ASPIRIN [ID], Dose: 300 mg Supp/(ID) ID. Medication Ordered: Aspirin ID 300 mg (NOW).
--- NOTE | 2016-06-17 11:18 | ED DISCHARGE INSTRUCTIONS ---
Patient: SUNIL TRINH General Instructions [facility] VisitID: [id number] [address] [place] [address] 86y, F Registration Date/Time: 06/13/2016 Acute mental status change with stupor. Fall. (Electronically signed by Marisela Cheng MD 06/17/2016 7:21)
--- NOTE | 2016-06-17 11:47 | NUR ---
PT MORE ALERT THIS MORNING, FOLLOWING SOME COMMANDS. SPEECH THERAPY WORKED WITH PATIENT TO ASSESS SWALLOW. RECOMMENDING NPO WITH Q2H ORAL CARE FOLLOWED BY ICE CHIPS. POOR ORAL MOTOR CONTROL. OXYGEN WEANED DOWN TO 1L NC. SATS 91-96%. WCTM.
--- NOTE | 2016-06-17 13:12 | NUR ---
In to see patient and do dressing changes to 2 skin tears to right forearm. Proximal skin tear with no flap present, wound base is red, moist and viable, distal skin tear has viable flap covering wound. Both areas cleansed with NS, Xeroform cut to fit and applied, covered with gauze and clear transparent film tape. Report given to RN, will continue to monitor.
--- NOTE | 2016-06-17 16:01 | NUR ---
PATIENT'S HEART RATE VARIES FROM LOW 100'S TO 120'S, LOPRESSOR IV WAS GIVEN AT 1500, WITH MORPHINE BY PREVIOUS RN. PATIENT IS ASLEEP AT THIS TIME. UPON ASSESSMENT THOUGH WAS ABLE TO FIRE SYSTEMS INSPECTOR MY HAND WITH HER LEFT HAND, RUE IS FLACCID. MUSCLE TONE PRESENT TO THE RLE. NO PAIN NOTED AT THIS TIME. BARDALES DRAINING TO GRAVITY, RFA HAVE C/D/I GAUZE TO THE ARM THAT WERE PLACED ON DAY SHIFT. WILL CONTINUE TO MONITOR.
--- NOTE | 2016-06-17 20:34 | NUR ---
PT IS NON-COMMUNCIATVIE, GARBLE NOISES AT TIMES. OPENS EYES TO VOICE, ABLE TO FOLLOW COMMAND - LEFT HAND CABINET ASSEMBLER. HISTORY OF RECENT CVA. FLACC SCALE 0. RIGHT ARM FLACID. SMALL AMOUNT OF MOVEMENT NOTED TO LEGS BILAT. WAFFLE MATTRESS IN PLACE - EVERY 2 HOUR TURN. 02 NC AT 3 LITER - SATS AT 98%. BLOOD PRESSURE AT 145/71, HEART RATE IN THE 120'S, AFIB NOTED PER TELE. PT IS WITHIN SITE OF NURSES STATION. ORAL CARE PROVIDED AND PT TURNED. WILL CONTINUE TO MONITOR.
--- NOTE | 2016-06-17 22:06 | Progress Note ---
Subjective General I had a phone discussion with Cynthia son and PRAVIN Jones. He is feeling that she is making progress and that he would like to keep her hydrated and give her a feeding tube at this time. He feels that this would be consistent with what her wishes are. I have given him a gaurded prognosis in that it is unlikely that she will come back to where she was prior but that she may get her gag back and be able to take oral nutrition again at some time. Plan: I have contacted Dr. Watson for a surgical consult and peg tub placement once she is done with the peg tube will start on tube feeds and oral meds and then anticipate d/c in 2-3 days to SNF for strengthening.
--- NOTE | 2016-06-17 22:55 | NUR ---
SKIN "SPLIT"/TEAR NOTED TO COCYX - PICTURES TAKEN, PLACED IN CHART. MEPILEX TO COCYX - CDI, PT TURNED TO RIGHT SIDE.
[2016-06-18] VITALS (8 sets, daily range): BP systolic 131–155; BP diastolic 54–88
--- NOTE | 2016-06-18 05:47 | NUR ---
NO NOTABLE CHANGES. LABS DRAWN ORDERED. PT TURNED EVERY 2 HOURS AND ORAL CARE PROVIDED. PT TOLERATED WELL. LAST BLOOD PRESSURE AT 131/64. HEART RATE AT 103, O2 SATS AT 100% ON 3 LITERS NC. PT REMAINS NPO. IN SITE OF NURSES STATION.
--- NOTE | 2016-06-18 07:18 | Progress Note ---
Subjective General 86yo female with left frontal CVA and right hemiparesis, pt of Dr. Hdz, DNR/ DNI status. Tube feeding initially declined but then requested yesterday by POA as pt was more alert. Pt was pulling at things and opening eyes yesterday. Sometimes obeys command to move left arm or hand or open eyes but not consistently. Absent gagreflex yesterday. Physical Exam Vital Signs / I&Os Vital Signs Date Time Temp Pulse Resp B/P Pulse O2 O2 Flow FiO2 Ox Delivery Rate 06/18 0538 97.3 06/18 0534 109 131/64 100 Nasal 3.0 Cannula 06/18 0243 107 06/18 0231 97.9 109 16 147/70 97 Nasal 3.0 Cannula 06/17 2219 97.0 120 20 142/67 93 Nasal 3.0 Cannula 06/17 2105 105 06/17 2024 Nasal 2.0 Cannula 06/17 2012 2.0 06/17 1835 98.1 110 16 145/71 97 Nasal 3.0 Cannula 06/17 1611 146/74 06/17 1425 98.2 125 26 154/87 98 Nasal 3.0 Cannula 06/17 1254 107 16 160/82 95 Nasal 2.0 Cannula 06/17 1007 98.4 123 16 141/78 95 Nasal 2.0 Cannula 06/17 0849 99 Nasal 2.0 Cannula 06/17 0744 Nasal 4.0 Cannula I&O 06/17 0800 03/06 1600 06/18 0000 Intake Total 945 1554 Output Total 800 700 450 Balance 145 -700 1104 General Appearance Lethargic. Opens eyes briefly on stimulation. Lungs Crackles in bases. Cardiovascular Regular rate and rhythm Abdomen Normal bowel sounds Extremities No edema Skin No Rashes LAB Results Laboratory Tests 06/18 0400 Chemistry Plasma Sodium (136 - 145 mmol/L) 147 Plasma Potassium (3.5 - 5.1 mmol/L) 3.8 Plasma Chloride (98 - 107 mmol/L) 112 CO2 (Enzymatic) (21 - 32 mmol/L) 27 BUN (7 - 18 mg/dL) 42 Creatinine (0.6 - 1.3 mg/dL) 1.1 Est GFR ( Amer) (mL/min) >60 Est GFR (Non-Af Amer) (mL/min) 49.82 Glucose (70 - 110 mg/dL) 102 Plasma Calcium (8.5 - 10.1 mg/dL) 8.4 Hematology WBC (4.5 - 11.5 K/uL) 8.7 RBC (4.00 - 5.20 M/uL) 2.38 Hgb (12.0 - 16.0 gm/dL) 8.2 Hct (36.0 - 46.0 %) 25.8 MCV (80 - 100 fL) 109 MCH (26 - 34 pg) 34 RDW (11.6 - 14.8 %) 13.9 Neut % (Auto) (50 - 75 %) 84.0 Lymph % (Auto) (25 - 40 %) 5.9 [place] % (Auto) (3 - 14 %) 9.9 Eos % (Auto) (0 - 4 %) 0.2 Baso % (Auto) (0 - 2 %) 0 Plt Count, EDTA (150 - 400 K/uL) 140 PUBS MCHC (31 - 37 g/dL) 32 Assessment and Plan Problem List 1. Stroke Plan stable dense right hemiparesis. 2. CHF exacerbation Plan Improved. 3. Anemia Plan stable. 4. Malnutrition Status Acute Onset Date Unknown Plan PEG tube planned by Dr. Hdz in discussion with POA. Dr. Bass consulting and will place tube.
--- NOTE | 2016-06-18 08:23 | DIAGNOSTIC IMAGING REPORT ---
REFERRING PHYSICIAN/PROVIDER: Ciro Hdz MD CONSULTING POT RUNNER: Ky Garcia MD PROCEDURE: M-mode 2D echocardiography with spectral and color flow Doppler TECHNICAL QUALITY: The overall quality of the echo is fair INDICATION: chf, afib RHYTHM DURING PROCEDURE: The underlying rhythm is atrial fibrillation INTERPRETATIONS: LEFT VENTRICLE: Left ventricle is normal in size. The wall thickness is mildly increased with the interventricular septum measuring 12 mm and the posterior wall measuring 13 mm. The ejection fraction is estimated at 55%. Diastolic function could not be accurately assessed. RIGHT VENTRICLE: The right ventricle is normal in size and function ATRIA: There is severe biatrial enlargement. There is a shunt and the interatrial septum with a [id number] shunt. Qp:Qs is calculated at 1.36. MITRAL VALVE: The mitral valve is grossly normal. There is mild mitral regurgitation. There is no mitral stenosis noted. AORTIC VALVE: The aortic valve is trileaflet there is calcification of the aortic valve. The aortic valve appears to open well. There is evidence of likely mild aortic stenosis. TRICUSPID VALVE: Tricuspid valve leaflets are thin and pliable. There is mild tricuspid regurgitation noted. Moderately increased right ventricular systolic pressure of 45 mmHg. PULMONIC VALVE: The pulmonic valve is not well visualized. There is trace pulmonic regurgitation noted. GREAT VESSELS: The aortic root is normal in size. The ascending aorta measures 3.1 cm in diameter. PERICARDIUM: There is no evidence of a pericardial effusion. IMPRESSION: 1. Mild left ventricular hypertrophy 2. Normal biventricular size and systolic function 3. Severe biatrial enlargement 4. There is an interatrial shunting noted with presence of [id number] shunting likely suggesting the presence of a residual PFO. 5. Mild aortic stenosis 6. Mild mitral regurgitation 7. Mild tricuspid regurgitation 8. Moderately increased right ventricular systolic pressure (RVSP = 45 mmHg)
--- NOTE | 2016-06-18 08:23 | DIAGNOSTIC IMAGING REPORT ---
REFERRING PHYSICIAN/PROVIDER: Ciro Hdz MD CONSULTING BELLOWS TESTER: Ky Garcia MD PROCEDURE: M-mode 2D echocardiography with spectral and color flow Doppler TECHNICAL QUALITY: The overall quality of the echo is fair INDICATION: chf, afib RHYTHM DURING PROCEDURE: The underlying rhythm is atrial fibrillation INTERPRETATIONS: LEFT VENTRICLE: Left ventricle is normal in size. The wall thickness is mildly increased with the interventricular septum measuring 12 mm and the posterior wall measuring 13 mm. The ejection fraction is estimated at 55%. Diastolic function could not be accurately assessed. RIGHT VENTRICLE: The right ventricle is normal in size and function ATRIA: There is severe biatrial enlargement. There is a shunt and the interatrial septum with a [id number] shunt. Qp:Qs is calculated at 1.36. MITRAL VALVE: The mitral valve is grossly normal. There is mild mitral regurgitation. There is no mitral stenosis noted. AORTIC VALVE: The aortic valve is trileaflet there is calcification of the aortic valve. The aortic valve appears to open well. There is evidence of likely mild aortic stenosis. TRICUSPID VALVE: Tricuspid valve leaflets are thin and pliable. There is mild tricuspid regurgitation noted. Moderately increased right ventricular systolic pressure of 45 mmHg. PULMONIC VALVE: The pulmonic valve is not well visualized. There is trace pulmonic regurgitation noted. GREAT VESSELS: The aortic root is normal in size. The ascending aorta measures 3.1 cm in diameter. PERICARDIUM: There is no evidence of a pericardial effusion. IMPRESSION: 1. Mild left ventricular hypertrophy 2. Normal biventricular size and systolic function 3. Severe biatrial enlargement 4. There is an interatrial shunting noted with presence of [id number] shunting likely suggesting the presence of a residual PFO. 5. Mild aortic stenosis 6. Mild mitral regurgitation 7. Mild tricuspid regurgitation 8. Moderately increased right ventricular systolic pressure (RVSP = 45 mmHg)
--- NOTE | 2016-06-18 09:15 | CONSULTATION REPORT ---
DATE OF CONSULTATION: 06/18/2016 CHIEF COMPLAINT: 1. Dysphagia 2. Stroke HISTORY OF PRESENT ILLNESS: The patient is an 86-year-old woman who was admitted on 06/13/2016 for being found down at home. She was found to have a right-sided deficit and paralysis on the right upper extremity and lower extremity. Since being in the hospital, she has had ongoing inability to eat, and Dr. Hdz has conferred with the family, who have requested that a gastrostomy feeding tube be put in so that she can receive alimentation. MEDICAL/SURGICAL HISTORY: Medical history includes hypertension, rheumatoid arthritis, congestive heart failure, atrial fibrillation, anemia, gastrointestinal hemorrhages, bilateral lower extremity pain. Past surgery: Right eighth nerve surgery in 1977 , back surgery in 1992, left total knee in 2002, and remote tonsillectomy. MEDICATIONS: Outpatient medications on admission: 1. Gabapentin 100 mg one to three at bedtime for leg pain. 2. Carvedilol 6.25 b.i.d. p.o. 3. Aspirin 81 mg daily. 4. Acetaminophen as needed for pain. 5. Omeprazole 20 b.i.d. 6. Lisinopril 5 mg daily. 7. Zocor 20 mg at bedtime. 8. Lasix 40 mg daily. 9. Topical antifungals. 10. Vitamins. SOCIAL HISTORY: The patient is . She occasionally has a drink. She quit smoking a month ago and smoked about a cigarette a day up to that point. She is officially a DO NOT RESUSCITATE, but her artificial nutrition by tube suspension has been canceled. FAMILY HISTORY: Father had heart disease. Mother had a stroke and high blood pressure. REVIEW OF SYSTEMS: A multipoint review of systems could not be obtained due to the patient's inability to communicate. She has a poor gag reflex, but prior to the stroke was up walking about and had been going out to restaurants and getting on with life. PHYSICAL EXAMINATION: GENERAL: The patient was somnolent and sleepy when she was approached. She did not respond to verbal stimuli, though she was asleep when I walked in. HEENT: Her ears and nose did not demonstrate external lesions. I did not evaluate her neurologic status, as she was not cooperative to exam. CHEST: Clear. HEART: Irregular. ABDOMEN: Demonstrated no scars. There is no tenderness on palpation. Bowel sounds are active. She is nondistended. IMPRESSION: 1. Left hemispheric cerebrovascular accident; CT scan also demonstrates a previous occipital craniotomy (possibly related to her nerve surgery). MRI shows a left-sided frontotemporal cerebrovascular accident PLAN: I agreed to perform a PEG tube as requested by Dr. Hdz. The family is not in the ICU early this morning when I came by the patient; however, Dr. Hdz discussed this matter with the family, who have agreed to go ahead with it. I will see if I can meet with them prior to the surgery, but have left the consent form for them to sign when they show up.
--- NOTE | 2016-06-18 09:26 | NUR ---
NUTRITION CONSULT TUBE FEEDING Pt continues NPO 2/2 not safe to consume oral po at this time per SPORTING GOODS SALES MANAGER eval. The decision has been made by family (see MD notes) to feed pt via PEG tube to help meet estimated nutritional needs. Recommend Fibersource HN to start slow at 20 mls per hour x 12 hours, if tolerated advance by 20 more mls to 40 mls per hour x 12 hours, if tolerated advance to 60 mls per hour continuous goal rate. This provides ~1728 kcals and ~77 g protein = 25 kcals per kg and 1.1 g protein per kg. Rec 30 mls H2O flush before and after med administration. Rec 150 ml bolus flush H2O TID. Noted pt on lasix and with hx/o CHF. Please adjust IVFS if routine flushes start and monitor labs, BNP etc. Monitor tolerance N/V/D/C, cramping, bloating etc, residuals if MD desires. Elevated HOB at least [address] to follow up, monitor closely and avail for further consult prn.
--- NOTE | 2016-06-18 12:17 | NUR ---
PT BEING TRANSPORTED TO OR VIA BED AT THIS TIME. SON ACCOMPANIED PT AND TUFTING CREELER. ROUTINE MEDICATIONS GIVEN FOR BLOOD PRESSURE WELL PRN METOPROLOL AND MORPHINE. PT CONDITION IS UNCHANGED TODAY; CONTINUES TO BE APHASIC, RIGHT ARM FLACCID. TELE IN ATRIAL FIB, RATE 100-120'S.
--- NOTE | 2016-06-18 13:20 | NUR ---
PATIENT ARRIVED TO PACU AT 1312. SPONT RESP. VITALS STABLE. PATIENT APPEARS TO BE IN NO APPARENT DISTRESS- NO GRIMACING, GROANING OR WINCING. DRESSING AROUND NEW PEG TUBE CLEAN, DRY AND INTACT. WILL CONTINE TO MONITOR.
--- NOTE | 2016-06-18 14:44 | OPERATIVE REPORT ---
DATE OF SURGERY: 06/18/2016 SURGEON: Didier Bass MD PREOPERATIVE DIAGNOSIS: 1. Swallowing dysfunction/cerebrovascular accident POSTOPERATIVE DIAGNOSIS: 1. Swallowing dysfunction/cerebrovascular accident PROCEDURE PERFORMED: 1. Percutaneous endoscopic gastrostomy tube placement ANESTHESIA: General. INDICATIONS: The patient is an 86-year-old woman with a stroke, requiring PEG tube placement for feeding access. SURGICAL TECHNIQUE: The patient was taken to the operating room, where a general anesthetic was administered and the patient was placed in the supine position. The anterior abdomen was prepped. The endoscope was introduced into the stomach. Some oral secretions were suctioned away. The gastric body was insufflated, and ballottement on the anterior abdominal wall demonstrated the correct location. A local anesthetic of 1% Xylocaine was infiltrated, and an Angiocath was inserted through this site after first making a 1 cm incision with an 11 blade. The Angiocath was captured with the snare through the endoscope. Following this, a blue loop wire was placed and then engaged with the snare and withdrawn through the oropharynx. The PEG tube was pulled through the abdominal wall in a retrograde fashion, seating the bumper inside the stomach. The appropriate adapters were placed. The endoscope was reintroduced, confirming proper placement of the PEG button inside the stomach. The patient left in good condition and no intraoperative complications were encountered.
--- NOTE | 2016-06-18 16:32 | NUR ---
G TUBE IN PLACE AND VERIFIED BY AUSCULTATION. FLUSH OF 150 ML H2O DONE AND TF STARTED AT 20 ML/HR PER ORDERS. HOB ELEVATED > 30 DEGREES. PT SLEEPING, ROUSES EASILY. APPEARS COMFORTABLE. WCTM.
--- NOTE | 2016-06-18 23:52 | NUR ---
LATE ENTRY - ASSESSMENT COMPLETED ON PAPER CHARTS DUE TO COMPUTERS BEING DOWN. 2030 PT RESTING IN BED. ALERT, EYES OPEN TO VERBAL COMMANDS. NONCOMMUNICATIVE. FLACID RIGHT ARM. MOVEMENT NOTED TO LEFT ARM AND LEGS BILAT. EVERY 2 HOUR TURN. WAFFLE MATTRESS IN PLACE. SCDS BILAT. FOLLOWS SIMPLE COMMANDS. ABLE TO REAL ESTATE ATTORNEY WITH LEFT HAND WHEN ASKED. NC AT 3 LITERS - NO DISTRESS NOTED - O2 SATS AT 97%. CLEAR TO LEFT LUNG, RHONCHI TO RIGHT LUNG. HUMIDIFIED O2 IN PLACE. PT REMAINS NPO - ORAL CARE EVERY [address] - DRESSING CDI - FEEDING AT 20ML/HR, NO RESIDUAL NOTED. HOB AT 35 DEGREES. FLACC SCALE 0. AFIB NOTED PER TELE. HR 110'S TO 120'S. HEART MURMUR NOTED. IV TO LFA UNREMARKABLE - INFUSING AT 50/HR. FLEY IN PLACE DRAINING CLEAR YELLOW URINE. PT IS WITHIN SITE OF NURSES STATION.
[2016-06-19 03:03] VITALS: BP 143/89
--- NOTE | 2016-06-19 03:22 | NUR ---
DRESSING CHANGE COMPLETED - CLEANED WITH NS, HYDRAGUARD AROUND WOUND, XEROFORM TO SKIN TEAR, GAUZE AND TAGADERM PLACED. NO DRAINAGE NOTED. PT TOLERATED WELL.
--- NOTE | 2016-06-19 05:25 | NUR ---
PEG TUBE RESIDUAL OF 2ML - INCREASED TO 40ML/HR. FLUSHED WITH 150ML WATER PER ORDER. PT REPOSITIONED, TOLERATED WELL. NO NOTABLE CHANGES THIS SHIFT. NO AM LABS DRAWN. REMAINS WITHIN SITE OF NURSES STATION.
[2016-06-19 06:32] VITALS: BP 138/52
--- NOTE | 2016-06-19 07:35 | Progress Note ---
Subjective General Brief hx: 86y.o female who had large left CVA and right hemiparesis, no gag reflex, DNR/DNI who is post g tube at POA request and advancing on this. Has meds per gtube and patient appears to be a little more alert daily. Is able to move L arm, squeeze my hand but not able to communicate through this meaningfully this am. Physical Exam Vital Signs / I&Os Vital Signs Date Time Temp Pulse Resp B/P Pulse O2 O2 Flow FiO2 Ox Delivery Rate 06/19 0730 3.0 06/19 0632 99.9 125 16 138/52 98 Nasal 3.0 Cannula 06/19 0303 98.2 124 16 143/89 96 Nasal 3.0 Cannula / 2040 120 / 1940 Nasal 3.0 Cannula / 1500 102 17 155/72 95 Nasal 3.0 Cannula 03/07 1430 98.8 109 16 144/54 96 Nasal 3.0 Cannula / 1415 98.6 114 16 151/80 96 Nasal 3.0 Cannula /07 1400 98.6 115 16 150/73 96 Nasal 3.0 Cannula 03/07 1347 98.6 115 18 145/74 96 Nasal 3.0 Cannula 03/07 1335 112 18 147/76 98 03/07 1330 97.0 112 17 141/78 98 03/07 1325 114 18 143/82 99 03/07 1320 109 20 134/75 98 03/07 1315 118 22 130/57 97 03/07 1312 97.5 115 19 130/50 96 03/ 1049 98.8 125 18 153/88 99 Nasal 3.0 Cannula 06/18 0827 Nasal 3.0 Cannula 06/18 0745 2.0 I&O 06/19 0000 03/07 1600 /07 0800 Intake Total 150 655 523 Output Total 800 625 Balance 150 -145 -102 General Appearance Alert, eyes open and follows some commands. HEENT Normal exam Lungs Clear to auscultation, Normal air movement Cardiovascular irreg irreg and tachycardic Extremities No edema, right paralysis Assessment and Plan Problem List 1. CHF (congestive heart failure) Plan appears stable at this tiem on 2 L O2 at5 97% stop IVF and increase on her tube feed rate today 2. A-fib Plan stable on pgtube meds today and increase 3. Hypertension Plan stable 4. Anemia Plan check on labs in am close to d/c 5. Stroke Plan very limited post CVA now with gtube for no gag post swallow eval.
--- NOTE | 2016-06-19 10:32 | NUR ---
NUTRITION FOLLOW UP NOTE: Per nsg pt is currently tolerating her enteral feedings via peg tube. Rec continue to advance tube feeding to goal rate. Pt is currently running at 40 mls per hour and plans to advance to 60 mls today around 4:30 pm as scheduled. Continue to monitor labs, noted H and H labs with slightly improved. Pt weighed this am x2 61 kg and 59 kg? Admission wt was 69 kg, fluctuating, however pt with hx/o CHF, was on IVFs and also lasix; continue to monitor. RD to follow closely.
[2016-06-19 10:45] VITALS: BP 157/67
--- NOTE | 2016-06-19 11:09 | NUR ---
pt able to track to the right with visual and v/c. pt gripped with L hand and able to move into flexion upon request. pt unable to follow further commands of flexion elbow or touching her head with hand. pt unable to complete tasks with the RUE. pt able to attempt knee extension of BLE with Min A help. She quickly would pull her legs back into flexion. pt's family educated and had demo/ re-demo of completing elbow and shoulder flexion. Instructed to completed 2x/day. pt will continue to be followed.
--- NOTE | 2016-06-19 14:23 | NUR ---
PT'S MENTAL STATUS HAS BEEN ESSENTIALLY UNCHANGED TODAY, MOST OF THE TIME SHE IS BARELY RESPONSIVE WITH LITTLE MOVEMENT OF HER LEFT ARM, TO THEN BECOMING AGITATED PULLING AT HER RIGHT ARM WITH HER LEFT ARM, AND MOANING. WHEN SHE WAS AGITATED, HER HEART LEATHA WAS IN THE 130 RANGE. IT WAS NEARLY TIME FOR THE METOPROLOL THAT HAD BEEN NEWLY ORDERED TO BE GIVEN, SO THAT WAS GIVEN FOR THE HEART RATE AND TYLENOL VIA THE PEG TUBE WAS GIVEN FOLLOWED BY IV MORPHINE FOR THE AGITATION/APPARENT DISCOMFORT, WHICH INDEED DID HELP HER RELAX AND NOW APPEARS TO BE MORE COMFORTABLE. PT FAMILY MEMBERS HAVE BEEN HERE OF AND ON DURING THE DAY. PT HAS TOLERATED HER TUBE FEEDING AND WHEN RESIDUAL WAS CHECKED AT 1200 THERE WAS ABOUT 3 CC. RATE WILL BE INCREASED THIS AFTERNOON ORDERED.
[2016-06-19 14:29] VITALS: BP 142/46
--- NOTE | 2016-06-19 16:57 | NUR ---
PT IS AWAKE TO VOICE AND REPOSTIONING, SOME SIGNS OF PAIN USING [place] [facility] SCALE. PT IS NOT SPEAKING BUT CAN BLINK WHEN ASKED. RIGHT SIDE OF BODY FLACID WHILE LEFT ARM AND LEFT LEG HAVE SOME MOVEMENT WHEN LIFTED. NO BARREL MARKER EITHER HAND. Q2 TURNS APPLIED. MEPLEX ON COCCYX IS C/D/I. FEEDING HAS BEEN MOVED FROM 40ML/HR TO 60ML/HR. SON AND PRAVIN ALEJANDRO IS CURRETNLY IN ROOM AT BEDSIDE. RESTING W/ CALL LIGHT IN REACH.
[2016-06-19 18:15] VITALS: BP 140/41
--- NOTE | 2016-06-19 19:43 | NUR ---
DR RAMEY CALLED REGARDING PTS HEART RATE - FLUCTUATING UP TO 162. AWAITING RETURN CALL.
--- NOTE | 2016-06-19 19:52 | NUR ---
DR RAMEY CALLED VIA CELL PHONE - NO ANSWER.
--- NOTE | 2016-06-19 19:55 | NUR ---
DR MANAV TRUJILLO.
--- NOTE | 2016-06-19 20:29 | NUR ---
SPOKE WITH DR RAMEY - MADE AWARE OF HEART RATE TO A MAX OF 172 - FLUCTUATING 130'S AND UP. NEW ORDERS RECIEVED TO INCREASE METOPROLOL PER PEG TUBE TO 25MG TID - PLAN TO MONITOR EFFECTIVNESS FOR THE NEXT COUPLE HOURS - [facility] HEART RATE OF UNDER 120. ORDERS WRITTEN, READ BACK AND FAXED TO PHARMACY.
--- NOTE | 2016-06-19 20:30 | NUR ---
PT RESTING IN BED. ALERT. MOVING LEFT ARM AND BILAT LE - GENERALIZED WEAKNESS NOTED. NONCOMMUNICATIVE, GARBLED SPEECH AT TIMES. OPEN EYES TO COMMAND - MAKES EYE CONTACT. SHOOK HEAD NO WHEN ASKED IF SHE WANTED A BLANKET. RIGHT ARM REMAINS FLACID. PT PULLED FEET AWAY FROM THIS RN WHEN ASKED TO PUSH. TOOK DEEP BREATHS WHEN ASKED DURING ASSESSMENT. O2 NC AT 4L - O2 SATS AT 99%. TUBE FEEDING RUNNING AT 60ML/HR - NO RESIDUAL NOTED. WAFFLE MATTRESS IN PLACE. DRESSING TO PEG TUBE SITE CDI. EVERY 2 HOUR TURN. DRESSING TO RFA CDI. MEPLIEX IN PLACE TO COCYX - CDI. NO DISTRESS NOTED. REMAINS WITHIN SITE OF NURSES STATION.
--- NOTE | 2016-06-19 21:34 | NUR ---
PT TURNED TO LEFT SIDE - TOLERATED WELL. HEART RATE IN THE LOW 100'S AFTER THE SECOND DOSE OF 12.5MG METOPROLOL VIA PEG TUBE PER DR PHOENIX EDWARDS.
[2016-06-19 22:17] VITALS: BP 121/38
[2016-06-20 01:41] VITALS: BP 111/37
--- NOTE | 2016-06-20 03:57 | NUR ---
DRESSING CHANGE TO RIGHT ARM ORDERED. PT REPOSITIONED TO LEFT SIDE. ORAL CARE PROVIDED. WITHIN SITE OF NURSES STATIONS.
--- NOTE | 2016-06-20 03:59 | NUR ---
NO RESIDUAL TO PEG TUBE. FLUSHED WITH 150ML WATER ORDERED.
[2016-06-20 05:54] VITALS: BP 109/51
--- NOTE | 2016-06-20 06:27 | NUR ---
DR RAMEY ON FLOOR TO SEE PT.
--- NOTE | 2016-06-20 06:42 | Progress Note ---
Subjective General Per nursing has been doing ok. Has no gag on oral care. Had very fast HR that resolved with increase in metoprolol per gtube and now much better. Needed a armani last pm as she was active ? would pull out the g tube. Physical Exam Vital Signs / I&Os Vital Signs Date Time Temp Pulse Resp B/P Pulse O2 O2 Flow FiO2 Ox Delivery Rate 06/20 0554 98.1 122 20 109/51 99 Nasal 4.0 Cannula 06/20 0401 116 06/20 0141 97.5 113 20 111/37 98 Nasal 4.0 Cannula 06/20 0008 106 06/19 2217 98.8 118 24 121/38 99 Nasal 4.0 Cannula 06/19 2103 Nasal 4.0 Cannula 06/19 1815 99.7 136 28 140/41 97 Nasal 4.0 Cannula 06/19 1648 Nasal 4.0 Cannula 06/19 1429 98.6 120 26 142/46 93 Nasal 4.0 Cannula 06/19 1045 98.8 128 16 157/67 98 Nasal 3.0 Cannula 06/19 0800 Nasal 3.0 Cannula 06/19 0730 3.0 06/19 0632 99.9 125 16 138/52 98 Nasal 3.0 Cannula I&O 06/20 0000 08 1600 06/19 0800 Intake Total 510 423 673 Output Total 300 425 550 Balance 210 -2 123 General Appearance Alert, not able to communicate Lungs coarse BS non focal Cardiovascular irregularly irregular HR Abdomen Soft, has tube for feeding in place Extremities right paralysis, no edema. LAB Results Laboratory Tests 06/20 0430 Chemistry Plasma Sodium (136 - 145 mmol/L) 149 Plasma Potassium (3.5 - 5.1 mmol/L) 3.3 Plasma Chloride (98 - 107 mmol/L) 113 CO2 (Enzymatic) (21 - 32 mmol/L) 29 BUN (7 - 18 mg/dL) 46 Creatinine (0.6 - 1.3 mg/dL) 1.2 Est GFR ( Amer) (mL/min) 54.61 Est GFR (Non-Af Amer) (mL/min) 45.06 Glucose (70 - 110 mg/dL) 177 Plasma Calcium (8.5 - 10.1 mg/dL) 8.2 Plasma Magnesium (1.8 - 2.4 mg/dL) 2.0 Total Bilirubin (0.0 - 1.0 mg/dL) 0.4 AST (15 - 37 U/L) 27 ALT (12 - 78 U/L) 23 Alkaline Phosphatase (46 - 116 U/L) 69 Total Protein (6.4 - 8.2 g/dL) 5.8 Albumin (3.3 - 5.0 g/dL) 1.7 Hematology WBC (4.5 - 11.5 K/uL) 12.1 RBC (4.00 - 5.20 M/uL) 2.64 Hgb (12.0 - 16.0 gm/dL) 9.1 Hct (36.0 - 46.0 %) 28.3 MCV (80 - 100 fL) 107 MCH (26 - 34 pg) 35 RDW (11.6 - 14.8 %) 15.0 Neut % (Auto) (50 - 75 %) 88.2 Lymph % (Auto) (25 - 40 %) 4.8 [place] % (Auto) (3 - 14 %) 6.9 Eos % (Auto) (0 - 4 %) 0.1 Baso % (Auto) (0 - 2 %) 0 Plt Count, EDTA (150 - 400 K/uL) 129 PUBS MCHC (31 - 37 g/dL) 32 Assessment and Plan Problem List 1. A-fib Plan Has been with fast HR now resolved with beta dilshad. 2. Hypernatremia Status Acute Onset Date 06/16/16 Plan Increase on gtube fluids is going on 3. Stroke Plan Has stroke and right paralysis. I am concerned for 2 issues in particular after d/c; 1- patient may pull out g tube. 2- may aspirate and how will we want to deal with these 2 items.
--- NOTE | 2016-06-20 08:18 | NUR ---
Patient's son at bedside. Patient is tracking me with her eyes and is attempting to speak but speech is garbled. Patient appears comfortable and doesn't appear to be in any distress. Will continue to monitor patient.
--- NOTE | 2016-06-20 09:50 | NUR ---
Notified Dr. Hdz that patient's son would like to speak to him, Dr. Hdz will try to call him in a little bit, also notified Dr. Perez of patient's K+ and WBC.
--- NOTE | 2016-06-20 10:54 | NUR ---
pt supine in bed with soft mitt over left hand. pt's son, Robert reported that they are starting to look at "an exit plan" for the pt. pt was very somnolent and able to open eyes 50% of the time when given verebal cueing but was unable to keep them open for long. pt completed AAROM with her LUE and LLE but no trace of A with the RUE and RLE. ROM was completed at BUE shoulders, elbows and wrists and BLE knees and hips. pt will continue to be followed.
[2016-06-20 11:00] VITALS: BP 126/33
--- NOTE | 2016-06-20 15:41 | NUR ---
Did bed bath, full linen change, gown change. Flushed peg tube with 150 mls water. Mouth care provided, patient repositioned, changed peg tube feeding bag and tubing, 0 residual in peg tube.
[2016-06-20 16:16] VITALS: BP 139/54
--- NOTE | 2016-06-20 17:25 | NUR ---
Patient has continued to rest comfortably throughout the day. Family at bedside. Gave pain medication as ordered. Will continue to monitor patient.
[2016-06-20 18:21] VITALS: BP 123/54
[2016-06-20 22:15] VITALS: BP 103/44
[2016-06-21 02:05] VITALS: BP 111/64
[2016-06-21 06:17] VITALS: BP 145/73
--- NOTE | 2016-06-21 07:37 | Progress Note ---
Subjective General General Per nursing has been doing ok. Has no gag on oral care. Had very fast HR that resolved with increase in metoprolol per gtube and now much better hr. Had armani on hands. Family has put g tube in but is realizing that this isn't consistent with what her wishes are. Will likely stop tube feeds. If she improves and wants to take po may try. If she is able to rehab OK but is not interested in terminal operations manager tube feeds. Plan is to go to [facility]. Physical Exam Vital Signs / I&Os Vital Signs Date Time Temp Pulse Resp B/P Pulse O2 O2 Flow FiO2 Ox Delivery Rate 06/21 616 98.4 104 20 145/73 99 Nasal 3.0 Cannula 06/21 0205 97.9 120 20 111/64 97 Nasal 3.0 Cannula 06/20 2215 97.3 115 20 103/44 99 Nasal 3.0 Cannula 06/20 2009 Nasal 3.0 Cannula 06/20 1821 98.2 80 20 123/54 99 Nasal 4.0 Cannula 06/20 1616 97.5 84 22 139/54 100 Nasal 4.0 Cannula 06/20 1100 98.1 106 20 126/33 100 Mask 4.0 06/20 1044 Mask 5.0 06/20 1000 4.0 06/20 0815 Nasal 4.0 Cannula I&O 06/21 0000 06/20 1600 06/20 0800 Intake Total 370 549 660 Output Total 900 375 Balance -530 549 285 General Appearance sleepy female not communicating. Lungs Clear to auscultation, Normal air movement Cardiovascular Regular rate and rhythm Abdomen Soft Extremities No edema Assessment and Plan Problem List 1. A-fib Plan Plan for d/c today hx of afib and large stroke. Goal is for her to rehab if able but no tube feeds afterall. Will have her use tube for comfort meds only not nutrition. 2. Hypertension Plan Will be working on goal of comfort. 3. Stroke Plan Hx of CVA and no gag ... not wanting gtube as wouldn't want this and that is c/w her polst. d/c snf rehab as able then ? hospice if fails.
[2016-06-21] MEDS ORDERED: OXAYDO5 MG PTUBE (07:40)
[2016-06-21] MEDS ORDERED: LOPRESSOR25 MG PTUBE (07:41)
[2016-06-21] MEDS ORDERED: ATIVAN0.5 MG PO (07:42)
--- NOTE | 2016-06-21 07:43 | Provider's Discharge Care Plan ---
Problem, Goal, Plan Problem List 1. Stroke 2. Atrial fibrillation Instructions: Will try to rehab CVA and see how she does but no more feeding tube. Hospice if fails
--- NOTE | 2016-06-21 10:11 | NUR ---
pt d/c'd to SNF.
--- NOTE | 2016-06-21 11:15 | NUR ---
Gave pain medication as ordered. Removed IV and patient tolerated well. Patient is ready to transfer to SNF, waiting for transport.
--- NOTE | 2016-06-21 11:16 | NUR ---
Called [facility] and gave report to
[2016-06-21 11:27] VITALS: BP 130/60
--- NOTE | 2016-06-21 11:38 | NUR ---
Patient left the hospital with [facility] at 1136 to transfer to SNF.
--- NOTE | 2016-06-21 11:47 | NUR ---
Up to see patient prior to discharge today to SNF. dressing changes completed to skin tears to right forearm, cleansed with NS, covered with xeroform, gauze and secured with transparent film tape. Next attention turned to the coccyx area where pressure injury stage 1,2, and DTI present. Please see photographic wound assessment sheets for wound photo and characterisitics of wounds. Coccyx cleansed with NS and Optifoam foam sacral dressing placed. Family given education regarding pressure injuries, both verbal and literature. All questions answered, pt remains on WAFFLE mattress, vigilent turning taking place, Cloth Shrinking Machine Operator Helper following patient, involved in nutrition aspect. Report on wounds given to receiving RN at [facility], all questions answered. Call placed to Dr. Hdz with update on coccyx, will continue to monitor.
--- NOTE | 2016-06-26 21:09 | DISCHARGE SUMMARY ---
ADMIT DATE: 06/15/2016 DISCHARGE DATE: 06/21/2016 ADMITTING DIAGNOSES: 1. 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 Mental status changes in an 86-year-old lady 3. Atrial fibrillation 4. Hypertension 5. Anemia 6. Chronic low white count DISCHARGE DIAGNOSES: 1. 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 Mental status changes in an 86-year-old lady 3. Atrial fibrillation 4. Hypertension 5. Anemia 6. Chronic low white count 7. 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 G-tube placement BRIEF HISTORY: The patient was at home, there was a bump that was heard in her facility and she was found down. She was brought to the emergency department for evaluation. HOSPITAL COURSE: She was found to have multiple electrolyte abnormalities and right-sided weakness. Her electrolyte abnormalities also included an elevated CK and possible rhabdomyolysis. In her having this large stroke, the initial thought was that we would wait and see if she improved with a little bit of time, that she did not seem to have much improvement initially and then she did start waking up a little bit more. Initially, she was unable to communicate at all. When she woke up a little bit more the family decided they wanted to be a little more aggressive in her care. She was given a G-tube and that with the G-tube there were certain family members that recognized that her POLST form was not consistent with this and though the power of attorney lawyer was aware, he initially felt that she would want this, but then did come to the realization that she really would not want a G-tube and feeding at this point in her life and with this large stroke, the decision was made for her to take only medications through the G- tube, not to continue with life prolonging measures through nutrition and that to work on COMFORT MEASURES ONLY other than some initial chance at rehabilitation, see if she was able to improve on her swallow. DISCHARGE INSTRUCTIONS/MEDICATIONS: She was discharged to [facility] with PT, OT and speech evaluation. Her medications include metoprolol 25 mg per G-tube t.i.d., lorazepam 0.5 mg at bedtime, acetaminophen 325 mg per G- tube q.4 hours p.r.n., ipratropium bromide nebulizer 1-2 sprays to each nostril as needed for runny nose and omeprazole 20 mg per G-tube daily. She had goals for COMFORT MEASURES and anticipate patient will either start to swallow and improve or likely if she does not show any improvement that she will be moving towards hospice at her son and her family's wishes. Her son has the power of attorney lawyer for this patient.
--- NOTE | 2016-06-26 21:09 | DISCHARGE SUMMARY ---
ADMIT DATE: 06/15/2016 DISCHARGE DATE: 06/21/2016 ADMITTING DIAGNOSES: 1. 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 Mental status changes in an 86-year-old lady 3. Atrial fibrillation 4. Hypertension 5. Anemia 6. Chronic low white count DISCHARGE DIAGNOSES: 1. 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 Mental status changes in an 86-year-old lady 3. Atrial fibrillation 4. Hypertension 5. Anemia 6. Chronic low white count 7. 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 G-tube placement BRIEF HISTORY: The patient was at home, there was a bump that was heard in her facility and she was found down. She was brought to the emergency department for evaluation. HOSPITAL COURSE: She was found to have multiple electrolyte abnormalities and right-sided weakness. Her electrolyte abnormalities also included an elevated CK and possible rhabdomyolysis. In her having this large stroke, the initial thought was that we would wait and see if she improved with a little bit of time, that she did not seem to have much improvement initially and then she did start waking up a little bit more. Initially, she was unable to communicate at all. When she woke up a little bit more the family decided they wanted to be a little more aggressive in her care. She was given a G-tube and that with the G-tube there were certain family members that recognized that her POLST form was not consistent with this and though the power of matcher offbearer was aware, he initially felt that she would want this, but then did come to the realization that she really would not want a G-tube and feeding at this point in her life and with this large stroke, the decision was made for her to take only medications through the G- tube, not to continue with life prolonging measures through nutrition and that to work on COMFORT MEASURES ONLY other than some initial chance at rehabilitation, see if she was able to improve on her swallow. DISCHARGE INSTRUCTIONS/MEDICATIONS: She was discharged to [facility] with PT, OT and speech evaluation. Her medications include metoprolol 25 mg per G-tube t.i.d., lorazepam 0.5 mg at bedtime, acetaminophen 325 mg per G- tube q.4 hours p.r.n., ipratropium bromide nebulizer 1-2 sprays to each nostril as needed for runny nose and omeprazole 20 mg per G-tube daily. She had goals for COMFORT MEASURES and anticipate patient will either start to swallow and improve or likely if she does not show any improvement that she will be moving towards hospice at her son and her family's wishes. Her son has the power of matcher offbearer for this patient.
== END 2016-06-21 11:36 | disposition home or self-care (01) | DRG 65 ==
LOC: ED SRH 10:14 → CC SRH 14:28 → TRANS SRH 14:28 → CC SRH 17:20
PROVIDERS: Surgery; ADMIT Emergency Medicine
PROC: 0DH63UZ Insertion of Feeding Device into Stomach, Percutaneous Approach (ICD-10-PCS; principal; 2016-06-18 13:15)
DX: I63.9 Cerebral infarction, unspecified (principal); G81.91 Hemiplegia, unspecified affecting right dominant side; E46 Unspecified protein-calorie malnutrition; E87.0 Hyperosmolality and hypernatremia; R13.10 Dysphagia, unspecified; I10 Essential (primary) hypertension; R29.716 NIHSS score 16; R47.01 Aphasia; S00.83XA Contusion of other part of head, initial encounter; W18.30XA Fall on same level, unspecified, initial encounter; Y92.039 Unspecified place in apartment as the place of occurrence of the external cause; Y99.8 Other external cause status; I48.91 Unspecified atrial fibrillation; I11.0 Hypertensive heart disease with heart failure; I50.9 Heart failure, unspecified; M06.9 Rheumatoid arthritis, unspecified; D64.9 Anemia, unspecified; Z78.1 Physical restraint status
CPT/HCPCS: 20011; 29253; 29259; 29264; 50004; 60001; 70002; 80102; 81312; 81460; 82965; 82966; 83475; 83525; 83754; 83921; 84527; 90004; 90047; 90074; 90100; 90469; 90616; 91320; 91504; 91505; 91556; 92031; 92132; 92610; 92720; 93140; 95059